=== PATIENT | male | born 1970 | race Caucasian/White ===

== ENCOUNTER 2020-02-13 14:19 | Outpatient (CLI) | payer OTHER, SELFPAY ==
[2020-02-13 16:22] LABS: Basophils Percent Auto 0.7 % (0.2-1.2); Eosinophils Absolute Auto 0.2 K/mm3 (0-0.3); Eosinophils Percent Auto 2.5 % (0-4.4); Hematocrit 51.7 % (42.0-52.0); Hemoglobin 17.9 g/dL (14.0-18.0); Immature Granulocyte Absolute 0.04 K/mm3 (0.00-0.031); Immature Granulocyte Percent A 0.7 % (0-0.5); Lymphocytes Absolute Auto 1.32 K/mm3 (0.9-3.2); Lymphocytes Percent Auto 21.6 % (18.3-44.2); Mean Corpuscular HGB Conc 34.6 g/dl (32-36); Mean Corpuscular Volume 89.6 fl (80-100); Mean Platelet Volume 10.6 fl (7.4-10.4); Monocytes Absolute Auto 0.7 K/mm3 (0.1-0.6); Monocytes Percent Auto 11.1 % (2.6-8.5); Neutrophils Absolute Auto 3.9 K/mm3 (1.3-6.7); Neutrophils Percent Auto 63.4 % (45.5-73.1); Platelet Count Result 218 k/mm3 (150-375); Red Blood Count 5.77 M/mm3 (4.6-6.20); Red Cell Distribution Width 12.9 % (11.5-14.5); White Blood Count 6.1 K/mm3 (4.5-10.0)
[2020-02-13 16:41] LABS: Hemoglobin A1C 8.2 % (<5.7)
[2020-02-13 16:42] LABS: Alanine Aminotransferase 40 U/L (4-50); Albumin Level 4.7 g/dL (3.5-5.1); Alkaline Phosphatase 108 U/L (38-126); Aspartate Amino Transferase 35 U/L (17-59); Bilirubin,Total 0.7 mg/dL (0.2-1.3); Blood Urea Nitrogen 12 mg/dL (9-20); Calcium 9.8 mg/dL (8.4-10.2); Carbon Dioxide 23 mmol/L (22-30); Chloride 100 mmol/L (98-107); Cholesterol 170 mg/dL (0-200); Estimated Glomerular Filt Rate > 60; Glucose 268 mg/dL (75-110); HDL Direct 41 mg/dL; Potassium 4.2 mmol/L (3.4-5.0); Sodium 136 mmol/L (137-145); Triglycerides 328 mg/dL (<150)
[2020-02-13 16:53] LABS: LDL Cholesterol Direct 98 mg/dL
[2020-02-13 17:37] LABS: Creatinine Urine 25.5 mg/dL
[2020-02-13 18:27] LABS: MALB Creatinine Ratio < 23.5 mg/g (0-30); Microalbumin Urine Random < 6.0 mg/L (0-16.7)
== END 2020-02-13 14:20 | disposition home or self-care (01) ==
PROVIDERS: PCP Family Medicine; Visit Provider Family Medicine
DX: I10 Essential (primary) hypertension (principal); E11.65 Type 2 diabetes mellitus with hyperglycemia; E78.2 Mixed hyperlipidemia; E11.9 Type 2 diabetes mellitus without complications
CPT/HCPCS: 36415; 80053; 80061; 82043; 83036; 85025

== ENCOUNTER 2020-11-26 15:52 | Outpatient (CLI) | payer OTHER, SELFPAY ==
[2020-11-26 16:09] LABS: Hematocrit 49.7 % (42.0-52.0); Hemoglobin 17.1 g/dL (14.0-18.0); Mean Corpuscular HGB Conc 34.4 g/dl (32-36); Mean Corpuscular Hemoglobin 31.2 pg (26-34); Mean Corpuscular Volume 90.7 fl (80-100); Mean Platelet Volume 10.1 fl (7.4-10.4); Platelet Count Result 201 k/mm3 (150-375); Red Blood Count 5.48 M/mm3 (4.6-6.20); Red Cell Distribution Width 12.8 % (11.5-14.5); White Blood Count 7.7 K/mm3 (4.5-10.0)
[2020-11-26 16:22] LABS: Alanine Aminotransferase 60 U/L (4-50); Albumin Level 4.4 g/dL (3.5-5.1); Alkaline Phosphatase 84 U/L (38-126); Anion Gap 8 mmol/L (8-16); Aspartate Amino Transferase 45 U/L (17-59); Bilirubin,Total 0.5 mg/dL (0.2-1.3); Blood Urea Nitrogen 14 mg/dL (9-20); Calcium 9.4 mg/dL (8.4-10.2); Carbon Dioxide 27 mmol/L (22-30); Chloride 101 mmol/L (98-107); Estimated Glomerular Filt Rate > 60; Glucose 263 mg/dL (75-110); Potassium 4.2 mmol/L (3.4-5.0); Sodium 136 mmol/L (137-145)
== END 2020-11-26 15:53 | disposition home or self-care (01) ==
LOC: ANHLAB 15:53
PROVIDERS: PCP Family Medicine; Visit Provider Physician Assistant
DX: E11.65 Type 2 diabetes mellitus with hyperglycemia (principal); I10 Essential (primary) hypertension
CPT/HCPCS: 36415; 80053; 83036; 85027

== ENCOUNTER 2021-04-08 06:39 | Outpatient (CLI) | payer OTHER, SELFPAY ==
[2021-04-08 07:35] LABS: Alanine Aminotransferase 46 U/L (4-50); Albumin Level 4.5 g/dL (3.5-5.1); Alkaline Phosphatase 80 U/L (38-126); Anion Gap 10 mmol/L (8-16); Aspartate Amino Transferase 38 U/L (17-59); Bilirubin,Total 0.8 mg/dL (0.2-1.3); Blood Urea Nitrogen 13 mg/dL (9-20); Calcium 9.2 mg/dL (8.4-10.2); Carbon Dioxide 23 mmol/L (22-30); Chloride 104 mmol/L (98-107); Cholesterol 166 mg/dL (0-200); Estimated Glomerular Filt Rate > 60; Glucose 149 mg/dL (75-110); HDL Direct 37 mg/dL; Potassium 4.2 mmol/L (3.4-5.0); Sodium 137 mmol/L (137-145); Triglycerides 162 mg/dL (<150)
[2021-04-08 07:46] LABS: LDL Cholesterol Direct 91 mg/dL
[2021-04-08 09:26] LABS: Hemoglobin A1C 7.9 % (<5.7)
== END 2021-04-08 06:40 | disposition home or self-care (01) ==
LOC: ANHLAB 06:41
PROVIDERS: PCP Family Medicine; Visit Provider Physician Assistant
DX: I10 Essential (primary) hypertension (principal); E11.69 Type 2 diabetes mellitus with other specified complication; E78.5 Hyperlipidemia, unspecified; E11.65 Type 2 diabetes mellitus with hyperglycemia
CPT/HCPCS: 36415; 80053; 80061; 83036

== ENCOUNTER 2021-11-08 09:46 | Outpatient (CLI) | payer OTHER, SELFPAY ==
[2021-11-08 10:16] LABS: Basophils Percent Auto 0.5 % (0.2-1.2); Eosinophils Absolute Auto 0.2 K/mm3 (0-0.3); Eosinophils Percent Auto 3.3 % (0-4.4); Hematocrit 48.2 % (42.0-52.0); Hemoglobin 16.6 g/dL (14.0-18.0); Immature Granulocyte Absolute 0.03 K/mm3 (0.00-0.031); Immature Granulocyte Percent A 0.5 % (0-0.5); Lymphocytes Percent Auto 22.3 % (18.3-44.2); Mean Corpuscular HGB Conc 34.4 g/dl (32-36); Mean Corpuscular Hemoglobin 31.4 pg (26-34); Mean Corpuscular Volume 91.3 fl (80-100); Mean Platelet Volume 10.2 fl (7.4-10.4); Monocytes Absolute Auto 0.7 K/mm3 (0.1-0.6); Monocytes Percent Auto 10.8 % (2.6-8.5); Neutrophils Absolute Auto 3.9 K/mm3 (1.3-6.7); Neutrophils Percent Auto 62.6 % (45.5-73.1); Platelet Count Result 181 k/mm3 (150-375); Red Blood Count 5.28 M/mm3 (4.6-6.20); Red Cell Distribution Width 13.3 % (11.5-14.5); White Blood Count 6.3 K/mm3 (4.5-10.0)
[2021-11-08 10:25] LABS: Hemoglobin A1C 7.8 % (<5.7)
[2021-11-08 10:28] LABS: Alanine Aminotransferase 42 U/L (4-50); Albumin Level 4.4 g/dL (3.5-5.1); Alkaline Phosphatase 108 U/L (38-126); Anion Gap 7 mmol/L (8-16); Aspartate Amino Transferase 31 U/L (17-59); Bilirubin,Total 0.7 mg/dL (0.2-1.3); Blood Urea Nitrogen 14 mg/dL (9-20); Calcium 9.4 mg/dL (8.4-10.2); Carbon Dioxide 22 mmol/L (22-30); Chloride 104 mmol/L (98-107); Cholesterol 178 mg/dL (0-200); Estimated Glomerular Filt Rate > 60; Glucose 132 mg/dL (65-110); HDL Direct 42 mg/dL; Potassium 4.3 mmol/L (3.4-5.0); Sodium 133 mmol/L (137-145); Triglycerides 279 mg/dL (<150)
[2021-11-08 10:38] LABS: LDL Cholesterol Direct 90 mg/dL
[2021-11-08 11:18] LABS: Creatinine Urine 71.3 mg/dL
[2021-11-08 11:22] LABS: MALB Creatinine Ratio 23.1 mg/g (0-30); Microalbumin Urine Random 16.5 mg/L (0-16.7)
== END 2021-11-08 09:47 | disposition home or self-care (01) ==
LOC: ANHLAB 09:48
PROVIDERS: PCP Family Medicine; Visit Provider Family Medicine
DX: I10 Essential (primary) hypertension (principal); E11.9 Type 2 diabetes mellitus without complications; E78.2 Mixed hyperlipidemia
CPT/HCPCS: 36415; 80053; 80061; 82043; 83036; 85025

== ENCOUNTER 2022-05-31 06:54 | Outpatient (CLI) | payer OTHER, SELFPAY ==
[2022-05-31 07:27] LABS: Basophils Absolute Auto 0.1 K/mm3 (0.0-0.1); Basophils Percent Auto 0.8 % (0.2-1.2); Eosinophils Absolute Auto 0.2 K/mm3 (0-0.3); Eosinophils Percent Auto 3.3 % (0-4.4); Hematocrit 49.7 % (42.0-52.0); Hemoglobin 17.2 g/dL (14.0-18.0); Immature Granulocyte Absolute 0.03 K/mm3 (0.00-0.031); Immature Granulocyte Percent A 0.5 % (0-0.5); Lymphocytes Absolute Auto 1.19 K/mm3 (0.9-3.2); Lymphocytes Percent Auto 19.5 % (18.3-44.2); Mean Corpuscular HGB Conc 34.6 g/dl (32-36); Mean Corpuscular Volume 89.7 fl (80-100); Monocytes Absolute Auto 0.7 K/mm3 (0.1-0.6); Monocytes Percent Auto 12.1 % (2.6-8.5); Neutrophils Absolute Auto 3.9 K/mm3 (1.3-6.7); Neutrophils Percent Auto 63.8 % (45.5-73.1); Platelet Count Result 190 k/mm3 (150-375); Red Blood Count 5.54 M/mm3 (4.6-6.20); Red Cell Distribution Width 13.3 % (11.5-14.5); White Blood Count 6.1 K/mm3 (4.5-10.0)
[2022-05-31 10:26] LABS: Hemoglobin A1C 7.6 % (<5.7)
[2022-05-31 11:38] LABS: Alanine Aminotransferase 46 U/L (6-50); Albumin Level 4.6 g/dL (3.5-5.1); Alkaline Phosphatase 91 U/L (38-126); Anion Gap 13 mmol/L (8-16); Aspartate Amino Transferase 32 U/L (17-59); Bilirubin,Total 0.7 mg/dL (0.2-1.3); Blood Urea Nitrogen 15 mg/dL (9-20); Calcium 9.3 mg/dL (8.4-10.2); Carbon Dioxide 21 mmol/L (22-30); Chloride 99 mmol/L (98-107); Cholesterol 161 mg/dL (0-200); Estimated Glomerular Filt Rate > 60; Glucose 162 mg/dL (65-110); HDL Direct 45 mg/dL; Potassium 4.2 mmol/L (3.4-5.0); Sodium 133 mmol/L (137-145); Triglycerides 208 mg/dL (<150)
[2022-05-31 11:49] LABS: LDL Cholesterol Direct 78 mg/dL
[2022-05-31 12:30] LABS: Prostate Specific Antigen 0.2 ng/mL (< OR = 4.0)
== END 2022-05-31 06:55 | disposition home or self-care (01) ==
PROVIDERS: PCP Family Medicine; Visit Provider Nurse Practitioner Gerontology
DX: Z12.5 Encounter for screening for malignant neoplasm of prostate (principal); I10 Essential (primary) hypertension; E78.5 Hyperlipidemia, unspecified; E11.69 Type 2 diabetes mellitus with other specified complication; E11.65 Type 2 diabetes mellitus with hyperglycemia
CPT/HCPCS: 36415; 80053; 80061; 83036; 84153; 84443; 85025; G0103

== ENCOUNTER 2022-07-25 08:00 | Emergency (ER) | payer OTHER, SELFPAY ==
--- NOTE | 2022-07-25 08:25 | ED.URI ---
HPI - URI/Sore Throat General Chief Complaint: Upper Respiratory Infection Stated Complaint: fever,sob Time Seen by Provider: 07/25/22 08:34 Source: patient and RN notes reviewed Mode of arrival: ambulatory Limitations: no limitations History of Present Illness HPI Narrative: 51-year-old male presents with concern for feeling of shortness of breath that occurs mainly at nighttime he reports some mild rhinorrhea, feeling of something catching in his throat. He reports body aches and low-grade temperature. He reports most of the symptoms occur in the evening and overnight, he has sweats and chills overnight. He reports in the morning he feels fine, this has been going on for 3 to 4 days. He reports he had COVID 1 month ago and took Paxlovid. His COVID symptoms completely resolved after 1 week. He reports he is taken ibuprofen for his current symptoms, denies any other agbk-hxq-iwbofpi medications. He denies any history of problems with breathing, smoking, asthma. He denies chest pain. He denies difficulty swallowing MD elicited complaint: cough and sore throat Related Data Allergies Allergy/AdvReac Type Severity Reaction Status Date / Time amoxicillin Allergy Severe Hives Verified 06/01/22 07:18 Review of Systems Review of Systems: CONSTITUTIONAL: Denies malaise, chills, sweats, low-grade fever. EYES: Denies visual changes, redness, or discharge. ENT: Reports rhinorrhea, congestion. Sinus pain, otalgia and sore throat. CARDIOVASCULAR: Denies chest pain, palpitations, or edema. RESPIRATORY: Reports cough, dyspnea. GASTROINTESTINAL: Denies abdominal pain, nausea, vomiting, diarrhea SKIN: Denies rash or itching. MUSCULOSKELETAL: Reports myalgia. NEUROLOGIC: Denies headache. All systems reviewed & are unremarkable except as noted in HPI and below PMFSH Past Medical History Medical History Benign essential HTN Hyperlipidemia associated with type 2 diabetes mellitus Type 2 diabetes mellitus with hyperglycemia Social History Social History Social History: Smoking status: Never smoker Second hand tobacco smoke exposure: No Alcohol intake: current Drinks per week: 2 Substance use: never Substance use type: does not use Gender identity (if verbalized by the patient): Male Sexual Orientation (if Verbalized by the Patient): Straight or Heterosexual Comments At time of signature, agree with nursing past medical, surgical, social and family history. There is no relevant family history pertinent to the presenting complaint Exam Narrative: GENERAL: Well-appearing, well-nourished, and in no acute distress. HEAD: Normocephalic EYES: PERRLA, conjunctivae clear ENT: Nares clear, clear discharge. Mucous membranes moist. TM pearly dontao with dull light reflex bilaterally; no tragal tenderness. Oropharynx not erythematous without lesions. Tonsils not enlarged and without exudate, no drooling, no hoarseness, no trismus, uvula midline. NECK: Supple. No lymphadenopathy CHEST: Clear to auscultation, breath sounds equal. No wheezing, rhonchi, rales, or stridor. No respiratory distress, speaks in full sentences. HEART: Regular rate and rhythm. No murmur heard. SKIN: Warm, dry, no rash. NEURO: Alert and oriented x3. PSYCH: Normal mood and affect Course Course Emergency Course: Patient is aware of diagnosis, understands and agrees to treatment plan. Anticipatory guidance given. Patient agrees to follow-up as directed and is aware of reasons to seek care at the emergency department. Portions of this record may have been created with voice recognition software Level of Care: Express Care Visit Vital Signs Vital signs: Vital Signs Temperature 97.8 F 07/25/22 08:32 Pulse Rate 101 H 07/25/22 08:32 Respiratory Rate 20 07/25/22 08:32 Blood Pressure 118/76 07/25/22 08:32 Pulse Oximetry 97 07/25/22 0
[2022-07-25 08:32] VITALS: BP 118/76; PULSE 101; RESP 20; TEMP 36.6; O2SAT 97
== END 2022-07-25 09:09 | disposition home or self-care (01) ==
PROVIDERS: Emergency Provider Nurse Practitioner; PCP Family Medicine
DX: R06.02 Shortness of breath (principal); I10 Essential (primary) hypertension; E78.5 Hyperlipidemia, unspecified; E11.9 Type 2 diabetes mellitus without complications
CPT/HCPCS: 87804; 99213; G0463

== ENCOUNTER 2022-07-27 07:47 | Emergency (ER) | payer OTHER, SELFPAY ==
--- NOTE | ~2022-07-27 | XR_ITS ---
EXAMINATION: XR chest 1V portable DATE: 07/27/2022 08:08 INDICATION: Fever. Shortness of breath. TECHNIQUE: A single frontal view of the chest was obtained. COMPARISON: None. FINDINGS: There is a left hilar mass. There are airspace opacities in the right mid and lower lung zo samy and left lower lung zone. No pleural effusion or pneumothorax. The heart size is normal. IMPRESSION: 1. Left hilar mass, which may be pneumonia or malignancy. Chest CT with contrast is recommended. 2. Airspace opacities in right mid and lower lung zones and left lower lung zone, consistent with ate lectasis versus pneumonia. Reviewed, dictated and finalized at location B. IMPRESSION: 1. Left hilar mass, which may be pneumonia or malignancy. Chest CT with contras t is recommended. 2. Airspace opacities in right mid and lower lung zones and left lower lung zon e, consistent with atelectasis versus pneumonia.
--- NOTE | ~2022-07-27 | CT_ITS ---
EXAMINATION: CTA chest PE protocol DATE: 07/27/2022 12:25 INDICATION: Shortness of breath. TECHNIQUE: Computed tomography angiography (CTA) of the chest was performed with 100 mL Omnipaque-350 intravenous contrast timed to evaluate the pulmonary arteries. Coronal maximum intensity projection 3D-reconstructions were created by the technologist. Automated exposure control and iterative reconst ruction technique were employed. The dose-length product was 773.36 mGy-cm. COMPARISON: Chest CT 07/27/2022 FINDINGS: There are airspace and groundglass opacities with air bronchograms involving left upper lob e, worst in the anterior segment, consistent with pneumonia. There are centrilobular nodules in right upper lobe, consistent with pneumonia. There is mild atelectasis in the lower lobes. There is a trac e left pleural effusion. The heart size is normal. There are coronary artery calcifications. No peric ardial effusion. There is no pulmonary embolus. There is diffuse hepatic steatosis. There is mild tho racic spondylosis. IMPRESSION: 1. Bilateral pneumonia, predominantly in left upper lobe. 2. No pulmonary embolus. Reviewed, dictated and finalized at location B.
--- NOTE | ~2022-07-27 | CT_ITS ---
EXAMINATION:CT diagnostic chest wo con DATE: 07/27/2022 09:19 INDICATION: Left lung mass. Abnormal chest radiograph. TECHNIQUE: Computed tomography (CT) of the chest was performed without intravenous contrast. Automate d exposure control and iterative reconstruction technique were employed. The dose-length product (DLP ) was 511.61 mGy-cm. COMPARISON: Chest single view 07/27/2022 FINDINGS: There are airspace and groundglass opacities with air bronchograms involving left upper lob e, worst in the anterior segment, consistent with pneumonia. There are centrilobular nodules in right upper lobe, consistent with pneumonia. There is mild atelectasis in the lower lobes. There is a trac e left pleural effusion. The heart size is normal. There are coronary artery calcifications. No peric ardial effusion. There is diffuse hepatic steatosis. There is mild thoracic spondylosis. IMPRESSION: 1. Bilateral pneumonia, predominantly in left upper lobe. Reviewed, dictated and finalized at location B.
[2022-07-27 07:49] VITALS: BP 158/86; PULSE 112; RESP 29; TEMP 39.6; O2SAT 99
--- NOTE | 2022-07-27 07:55 | ECG_ITS ---
Measurements Intervals [place] Rate: 108 P: 9 UT: 124 QRS: -44 QRSD: 107 T: 42 QT: 315 QTc: 424 Interpretive Statements SINUS TACHYCARDIA MARKED LEFT AXIS DEVIATION [QRS AXIS < -30] ABNORMAL ECG NO PREVIOUS ECG AVAILABLE FOR COMPARISON Electronically Signed On 07-27-2022 10:21:40 CDT by Jayme Bonds M.D.
[2022-07-27 08:07] VITALS: O2SAT 95
[2022-07-27 08:18] LABS: Basophils Percent Auto 0.3 % (0.2-1.2); Eosinophils Percent Auto 0.1 % (0-4.4); Hematocrit 45.1 % (42.0-52.0); Hemoglobin 15.5 g/dL (14.0-18.0); Immature Granulocyte Absolute 0.15 K/mm3 (0.00-0.031); Immature Granulocyte Percent A 1.3 % (0-0.5); Lymphocytes Absolute Auto 0.79 K/mm3 (0.9-3.2); Lymphocytes Percent Auto 6.7 % (18.3-44.2); Mean Corpuscular HGB Conc 34.4 g/dl (32-36); Mean Corpuscular Hemoglobin 30.8 pg (26-34); Mean Corpuscular Volume 89.5 fl (80-100); Mean Platelet Volume 9.4 fl (7.4-10.4); Monocytes Absolute Auto 1.8 K/mm3 (0.1-0.6); Monocytes Percent Auto 15.2 % (2.6-8.5); Neutrophils Absolute Auto 9.1 K/mm3 (1.3-6.7); Neutrophils Percent Auto 76.4 % (45.5-73.1); Platelet Count Result 208 k/mm3 (150-375); Red Blood Count 5.04 M/mm3 (4.6-6.20); Red Cell Distribution Width 13.5 % (11.5-14.5); White Blood Count 11.9 K/mm3 (4.5-10.0)
[2022-07-27 08:25] LABS: INR 1.1; Partial Thromboplastin Time 25.2 SECONDS (22.3-36.8)
[2022-07-27 08:28] LABS: D Dimer 0.82 ug/mL (<0.48); Lactic Acid Reflex 1.4 mmol/L (0.7-2.0)
[2022-07-27 08:30] LABS: Alanine Aminotransferase 44 U/L (6-50); Albumin Level 4.3 g/dL (3.5-5.1); Alkaline Phosphatase 88 U/L (38-126); Anion Gap 14 mmol/L (8-16); Aspartate Amino Transferase 42 U/L (17-59); Bilirubin,Total 0.7 mg/dL (0.2-1.3); Blood Urea Nitrogen 20 mg/dL (9-20); Calcium 8.8 mg/dL (8.4-10.2); Carbon Dioxide 22 mmol/L (22-30); Chloride 94 mmol/L (98-107); Estimated CRCL calculation 102 ml/min; Estimated Glomerular Filt Rate > 60; Glucose 137 mg/dL (65-110); Potassium 3.8 mmol/L (3.4-5.0); Sodium 130 mmol/L (137-145)
[2022-07-27] MEDS: IBUPROFEN 400 MG TABLET 800 MG PO (08:52)
[2022-07-27] MEDS: ACETAMINOPHEN 500 MG TABLET 1000 MG PO (08:54)
[2022-07-27 08:55] VITALS: BP 139/90; PULSE 113; RESP 25; O2SAT 98
--- NOTE | 2022-07-27 09:08 | PC.NURSE ---
Pt to CT scan via stretcher at this time.
[2022-07-27 09:09] LABS: Influenza A QL RT-PCR Negative (Negative); Influenza B QL RT-PCR Negative (Negative); SARS-CoV-2 RNA PCR Negative
[2022-07-27 09:44] VITALS: PULSE 100; RESP 27; TEMP 37.9; O2SAT 97
--- NOTE | 2022-07-27 10:13 | ED.URI ---
HPI - URI/Sore Throat General Chief Complaint: Upper Respiratory Infection Stated Complaint: uri symptoms, sob, cough Time Seen by Provider: 07/27/22 09:06 Source: patient Mode of arrival: ambulatory Limitations: no limitations History of Present Illness HPI Narrative: This is a 51 year old male that presents to the ER for cold symptoms present over the last 4 days. Reports fevers, dry cough, and shortness of breath. He was evaluated at urgent care and started on an albuterol inhaler and steroid with little relief. Denies chest pain. Related Data Allergies Allergy/AdvReac Type Severity Reaction Status Date / Time amoxicillin Allergy Severe Hives Verified 07/27/22 07:57 Review of Systems Review of Systems: CONSTITUTIONAL: Reports fever ENT: Reports sore throat CARDIOVASCULAR: Denies chest pain, or edema. RESPIRATORY: Reports cough and dyspnea. All systems reviewed & are unremarkable except as noted in HPI and below PMFSH Past Medical History Medical History Benign essential HTN Hyperlipidemia associated with type 2 diabetes mellitus Type 2 diabetes mellitus with hyperglycemia Social History Social History Social History: Smoking status: Never smoker Second hand tobacco smoke exposure: No Alcohol intake: current Drinks per week: 2 Substance use: never Substance use type: does not use Gender identity (if verbalized by the patient): Male Sexual Orientation (if Verbalized by the Patient): Straight or Heterosexual Exam Narrative: GENERAL: Well-appearing, well-nourished, and in no acute distress. HEAD: Normocephalic, atraumatic. EYES: EOMI. ENT: Nares clear, no rhinorrhea or epistaxis. Mucous membranes moist. Oropharynx without tonsillar hypertrophy exudate or other lesions. NECK: Supple. No adenopathy or masses. CHEST: Clear to auscultation. No respiratory distress. Rales in the left upper lobe. No wheezes or rhonchi HEART: Regular rate and rhythm. No murmur heard. Normal peripheral pulses. EXTREMITIES: Normal range of motion. No edema. SKIN: Warm, dry, no rash. NEURO: No focal deficits. Alert and oriented x3. PSYCH: Normal mood and affect Course Consultations Consultation #1: Spoke with hospitalist about patient and work-up who declines admission at this time Date: 07/27/22 Consultation #2: Spoke with patient's primary about work-up. Patient is to have close follow-up in clinic Date: 07/27/22 Vital Signs Vital signs: Vital Signs Temperature 103.3 F H 07/27/22 07:49 Pulse Rate 112 H 07/27/22 07:49 Respiratory Rate 29 H 07/27/22 07:49 Blood Pressure 158/86 H 07/27/22 07:49 Pulse Oximetry 99 07/27/22 07:49 Oxygen Delivery Room Air 07/27/22 07:49 Temperature 99.0 F 07/27/22 10:41 Pulse Rate 99 07/27/22 10:41 Respiratory Rate 28 H 07/27/22 10:41 Blood Pressure 127/60 07/27/22 10:41 Pulse Oximetry 94 07/27/22 10:41 Oxygen Delivery Room Air 07/27/22 08:07 MDM - URI/Sore Throat MDM Narrative Medical decision making narrative: Patient presents to the emergency department for for fever, cough, shortness of breath. Noted over the last couple of days. Febrile and tachycardic upon arrival, this improved with antipyretics. CBC with leukocytosis to 11.9. Metabolic panel with evidence of mild dehydration. D-dimer was elevated. Influenza and COVID screens are negative. EKG without acute ST changes. Patient denies any chest pain. His lactic acid is not elevated. Chest x-ray shows a possible mass as well as pneumonia. CT scan of the chest was obtained that shows bilateral pneumonia predominantly in the left upper lobe. CTA was obtained due to elevated dimer. This is without evidence of PE. Once again shows bilateral pneumonia predominantly in the left upper lobe. Patient and family updated on case findings. My plan was to admit patient catarino
[2022-07-27 10:41] VITALS: BP 127/60; PULSE 99; RESP 28; TEMP 37.2; O2SAT 94
[2022-07-27 13:25] VITALS: BP 120/72; PULSE 91; RESP 26; TEMP 36.7; O2SAT 97
== END 2022-07-27 13:26 | disposition home or self-care (01) ==
PROVIDERS: Emergency Provider Emergency Medicine; PCP Family Medicine
DX: J18.9 Pneumonia, unspecified organism (principal); Z20.822 Contact with and (suspected) exposure to COVID-19; I10 Essential (primary) hypertension; E11.69 Type 2 diabetes mellitus with other specified complication; E78.5 Hyperlipidemia, unspecified; Z79.84 Long term (current) use of oral hypoglycemic drugs; Z79.4 Long term (current) use of insulin; R00.0 Tachycardia, unspecified
CPT/HCPCS: 36415; 71045; 71250; 71275; 80053; 83605; 85025; 85380; 85610; 85730; 87040; 87502; 93005; 96365; 96367; 99284; A9270; C9803; J0456; J0696; Q9967; U0003; U0005

== ENCOUNTER 2022-08-02 15:08 | Outpatient (CLI) | payer OTHER, SELFPAY ==
--- NOTE | ~2022-08-02 | XR_ITS ---
XR chest 2V 08/02/2022 15:26 Indication: Follow-up pneumonia Procedure: 2 view chest Comparison: 07/27/2022 Findings: There is improving left perihilar pneumonia. Heart size normal. No pleural effusion, edema or pneumothorax. Impression: 1: Improving left perihilar pneumonia. Reviewed, dictated and finalized at location B. Impression: 1: Improving left perihilar pneumonia.
== END 2022-08-02 15:09 | disposition home or self-care (01) ==
LOC: ANHIMG 15:10
PROVIDERS: PCP Family Medicine; Visit Provider Nurse Practitioner Gerontology
DX: J18.9 Pneumonia, unspecified organism (principal)
CPT/HCPCS: 71046

== ENCOUNTER 2022-12-04 09:55 | Inpatient (IN) | payer OTHER, SELFPAY ==
[2022-12-04] VITALS (35 sets, daily range): BP systolic 136–182; BP diastolic 78–143; PULSE 97–113; RESP 13–105; TEMP 36.6–37.4; O2SAT 92–99; BMI 32.8
--- NOTE | ~2022-12-04 | XR_ITS ---
XR abdomen/kub 1V 12/05/2022 09:11 INDICATION: Small bowel obstruction TECHNIQUE: KUB COMPARISON: 12/04/2022 FINDINGS: NG tube in the stomach. There is decreased gaseous distention of the small bowel with incre asing volume of gas in the colon, likely resolving ileus or small bowel obstruction. Right airspace d isease may represent atelectasis or pneumonia. Possible right pleural effusion. IMPRESSION: 1: Decreasing small bowel gas and distention, likely resolving ileus or obstruction. 2: Right airspace disease, atelectasis versus developing pneumonia.. Reviewed, dictated and finalized at location B. AULIC RIVETER IMPRESSION: 1: Decreasing small bowel gas and distention, likely resolving ileus or obstruc tion. 2: Right airspace disease, atelectasis versus developing pneumonia..
--- NOTE | ~2022-12-04 | XR_ITS ---
EXAM: XR abdomen NG/feed tube rechec DATE: 12/04/2022 18:00 HISTORY: NG advanced 3 cm . COMPARISON: Same date at 4:35 PM FINDINGS/IMPRESSION: NG tube now in good position. No other interval change. Reviewed, dictated and finalized at location K. OONER
--- NOTE | ~2022-12-04 | XR_ITS ---
Supine views of the abdomen Clinical history: Small bowel obstruction COMPARISON: 12/05/2022 Findings: NG tube in satisfactory position. Bowel gas pattern is nonspecific. No evidence for obstruc tion or free air. No abnormal mass lesion or calcification is seen. Osseous structures are intact. Impression: NG tube in place. Nonspecific bowel gas pattern. Reviewed, dictated and finalized at [facility]. US AMBASSADOR Impression: NG tube in place. Nonspecific bowel gas pattern.
--- NOTE | ~2022-12-04 | XR_ITS ---
EXAM: XR abdomen NG/feed tube insert DATE: 12/04/2022 17:07 HISTORY: NG placement . COMPARISON: CT abdomen and pelvis, same date. FINDINGS: NG tube, tip projecting over the stomach, side port at the GE junction Streaky bibasilar o pacities in the lung bases. Multiple loops of dilated small bowel in the upper abdomen. No organomega ly. No abnormal abdominal calcification. Regional bones and soft tissues normal for age. IMPRESSION: NG tube side port is at the GE junction, consider advancing. Small bowel obstruction vers us adynamic ileus. Reviewed, dictated and finalized at location K. LE ASCP CONSULTANT IMPRESSION: NG tube side port is at the GE junction, consider advancing. Small bowel obstruction versus adynamic ileus.
--- NOTE | ~2022-12-04 | XR_ITS ---
Supine views of the abdomen Clinical history: Small bowel obstruction Findings: Bowel gas pattern is nonspecific. Oral contrast present within large bowel. No evidence for obstruction or free air. No abnormal mass lesion or calcification is seen. Osseous structures are in tact. Impression: Nonspecific bowel gas pattern. Reviewed, dictated and finalized at [facility]. ERY CHIEF Impression: Nonspecific bowel gas pattern.
--- NOTE | ~2022-12-04 | XR_ITS ---
EXAM: XR abdomen/kub 1V DATE: 12/04/2022 17:14 HISTORY: Ngt in place, DISTENTION, PAIN . COMPARISON: Same date at 4:35 PM. FINDINGS: Persistent bibasilar atelectasis. NG tube remains in stable position, side port at the GE junction. Diffuse small bowel dilation. IMPRESSION: Shallow positioned NG tube, consider advancing. Small bowel obstruction versus adynamic i leus. Reviewed, dictated and finalized at location K. MILL OPERATOR IMPRESSION: Shallow positioned NG tube, consider advancing. Small bowel obstruc tion versus adynamic ileus.
--- NOTE | ~2022-12-04 | CT_ITS ---
EXAMINATION: CT abdomen pelvis w con DATE: 12/04/2022 13:59 INDICATION: Lower abdominal pain. Hernia. History kidney stones. TECHNIQUE: Computed tomography (CT) of the abdomen and pelvis was performed with 100 CC Omnipaque 350 intravenous contrast. Automated exposure control and iterative reconstruction technique were employe d. Exam dose: 1510.93 mGy-cm total exam DLP. COMPARISON: None. FINDINGS: Minimal dependent bilateral lower lobe atelectasis. Normal heart size. Coronary artery calc ifications. No pericardial or pleural effusion. Diffuse hepatic steatosis. No hepatic space-occupying mass lesion. The gallbladder is present. No per icholecystic fluid or fat stranding. No bile duct or pancreatic duct dilatation. No pancreatic mass l esion or calcification. Normal splenic size. Normal morphology of the adrenal glands. No renal mass lesion or urinary tract calculus or hydroureteronephrosis. The urinary bladder is unrem arkable. There is prostate enlargement and calcifications. Bilateral fat-containing inguinal hernias. There is atherosclerotic calcification of the abdominal aorta but no aneurysm. No intraperitoneal or retroperitoneal or pelvic mass lesion or adenopathy or ascites. Prominent fluid retention in the stomach with air-fluid level. There are dilated fluid containing proximal and mid small bowel segments with air-fluid levels, witho ut obvious transition point. There are air fluid levels in the ascending colon. Diverticulosis of the very redundant sigmoid colon; no CT evidence of diverticulitis. No intraperitoneal free air. Up to 4.8 cm wide fat-containing umbilical or periumbilical hernia. Included skeletal structures are unremarkable. IMPRESSION: Dilated proximal and mid small bowel with air fluid levels, without obvious transition p oint, and air fluid levels of ascending colon; consider enterocolitis, adynamic ileus. Partial small bowel obstruction is not excluded. Diverticulosis of the sigmoid colon; no evidence of diverticulitis No free air Hepatic steatosis Reviewed, dictated and finalized at [facility]. Reviewed, dictated and finalized at location A. ENGER BOOKING CLERK IMPRESSION: Dilated proximal and mid small bowel with air fluid levels, withou t obvious transition point, and air fluid levels of ascending colon; consider e nterocolitis, adynamic ileus. Partial small bowel obstruction is not excluded. Diverticulosis of the sigmoid colon; no evidence of diverticulitis No free air Hepatic steatosis
--- NOTE | ~2022-12-04 | XR_ITS ---
EXAMINATION: XR sm bowel follow through DATE: 12/06/2022 12:31 INDICATION: Small bowel obstruction. TECHNIQUE: Oral contrast was administered, and a time course of radiographs of the abdomen was obtain ed. Fluoroscopy of the small bowel was noted performed. Fluoroscopy exposure time was 0 minutes. The total number of images was 8. COMPARISON: CT abdomen and pelvis 12/04/2022 FINDINGS: There are mildly dilated loops of jejunum. The ileum is normal in caliber. The terminal ileum is norm al. Transit time from the stomach to proximal colon was approximately 1 hour. IMPRESSION: 1. Mildly dilated jejunum, consistent with adynamic ileus. Reviewed, dictated and finalized at location A. HAND MAINTENANCE
[2022-12-04 10:38] LABS: Basophils Percent Auto 0.2 % (0.2-1.2); Eosinophils Percent Auto 0.3 % (0-4.4); Hematocrit 51.1 % (42.0-52.0); Hemoglobin 18.1 g/dL (14.0-18.0); Immature Granulocyte Absolute 0.07 K/mm3 (0.00-0.031); Immature Granulocyte Percent A 0.6 % (0-0.5); Lymphocytes Absolute Auto 0.31 K/mm3 (0.9-3.2); Lymphocytes Percent Auto 2.7 % (18.3-44.2); Mean Corpuscular HGB Conc 35.4 g/dl (32-36); Mean Corpuscular Hemoglobin 31.5 pg (26-34); Mean Platelet Volume 9.6 fl (7.4-10.4); Monocytes Absolute Auto 0.6 K/mm3 (0.1-0.6); Monocytes Percent Auto 5.5 % (2.6-8.5); Neutrophils Absolute Auto 10.5 K/mm3 (1.3-6.7); Neutrophils Percent Auto 90.7 % (45.5-73.1); Platelet Count Result 179 k/mm3 (150-375); Red Blood Count 5.74 M/mm3 (4.6-6.20); Red Cell Distribution Width 13.2 % (11.5-14.5); White Blood Count 11.5 K/mm3 (4.5-10.0)
[2022-12-04 11:09] LABS: Alanine Aminotransferase 45 U/L (6-50); Albumin Level 4.8 g/dL (3.5-5.1); Alkaline Phosphatase 84 U/L (38-126); Anion Gap 11 mmol/L (8-16); Aspartate Amino Transferase 35 U/L (17-59); Blood Urea Nitrogen 15 mg/dL (9-20); Calcium 9.6 mg/dL (8.4-10.2); Carbon Dioxide 23 mmol/L (22-30); Chloride 98 mmol/L (98-107); Estimated Glomerular Filt Rate > 60; Glucose 234 mg/dL (65-110); Lipase 26 U/L (23-300); Potassium 4.1 mmol/L (3.4-5.0); Sodium 132 mmol/L (137-145)
[2022-12-04 12:26] LABS: Appearance Urine Clear (Clear); Bilirubin Urine Negative (Negative); Blood Urine Trace-intact (Negative); Color Urine Yellow (Yellow); Glucose Urine UA 3+ mg/dL (Negative); Ketones Urine 4+ mg/dL (Negative); Leukocyte Esterase Ur Negative LEU/UL (Negative); Nitrate Urine Negative (Negative); Protein Urine Negative (Negative); Urobilinogen Urine 0.2 mg/dL (<2.0); pH Urine 5.5 (5.0-9.0)
[2022-12-04 12:31] LABS: Bacteria Urine Trace /hpf; RBC Urine 0-2 /hpf (0-2); WBC Urine 0-3 /hpf
[2022-12-04 12:32] LABS: Add Urine Microscopic? YES
--- NOTE | 2022-12-04 13:07 | ED.ABDPAIN ---
HPI - Abdominal Pain General Chief Complaint: Abdominal Pain Stated Complaint: umbilical hernia Time Seen by Provider: 12/04/22 12:54 Source: patient and RN notes reviewed Mode of arrival: ambulatory Limitations: no limitations History of Present Illness HPI narrative: This is a 52 year old male with history of DM 2 who presents for evaluation of lower abdominal pain. He developed mid abdominal pain last night at 9 pm last night and his pain has been constant. He reports abdominal bloating . He also reports his umbilical hernia seemed larger last night but is improved after he had episode of nausea and vomiting. He has small watery bowel movement this morning. He had low grade fever today. He states he has plans to see a surgeon to schedule hernia repair but he has not made appointment just yet. He rates his pain as 7/10. Related Data Home Medications Medication Instructions Recorded Confirmed empagliflozin 25 mg tablet 25 mg PO DAILY 12/04/22 12/04/22 (Jardiance) insulin glargine U-300 conc 300 90 unit subcut HS 12/04/22 12/04/22 unit/mL (3 mL) subcutaneous pen (Toujeo Max U-300 SoloStar) lisinopril 10 mg tablet 10 mg PO DAILY 12/04/22 12/04/22 metformin 1,000 mg tablet 1,000 mg PO BID 12/04/22 12/04/22 Allergies Allergy/AdvReac Type Severity Reaction Status Date / Time amoxicillin Allergy Severe Hives Verified 12/04/22 17:57 Review of Systems Constitutional: Constitutional: Reports fever(s) and Denies weakness Cardiovascular: Cardiovascular: Denies syncope, Denies rapid heart rate, Denies irregular heart rhythm, Denies leg edema and Denies dyspnea Respiratory: Respiratory: Denies chest congestion, Denies hemoptysis, Denies excessive phlegm production and Denies dyspnea Gastrointestinal: Gastrointestinal: Reports abdominal pain, Denies hematochezia, Reports diarrhea, Reports nausea and Reports vomiting Genitourinary: Genitourinary: Denies hematuria, Denies dysuria, Denies penile discharge and Denies testicular pain Musculoskeletal: Musculoskeletal: Denies joint swelling, Denies loss of height and Denies muscle weakness Neurologic: Denies syncope, Denies focal weakness and Denies weakness [facility] Past Medical History Medical History (Updated 12/04/22 @ 21:47 by Ramona Diamond MD) Dyslipidemia Hypertension Kidney stones Type 2 diabetes mellitus Surgical History Surgical History History of tonsillectomy Family History Family History (Updated 12/04/22 @ 17:15 by Jennifer Carrizales PA-C) Other Diabetes mellitus Hypertension Social History Social History (Updated 12/04/22 @ 17:16 by Jennifer Carrizales PA-C) Social History: Surrogate medical decision maker: Kary Durbin, spouse. Code status: Full code. Smoking status: Never smoker Second hand tobacco smoke exposure: No Alcohol intake: current Drinks per week: 4 Substance use: never Substance use type: does not use Lack of Transportation: No Lack of Food: Never True Current Housing: I Have Housing Concerned About Future Housing: No Difficulty Paying Gas/Electric Bills: No Difficulty Paying for Meds: No Currently Unemployed: No Education: Bachelor's Degree Difficulty w/ Childcare or Family Care: No Additional living arrangements comments: Lives with family in [place]. 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 Spiritual care concerns: No Exam Const: General: no acute distress and alert Nutritional Appearance: well nourished Orientation/consciousness: patient oriented x3 HENMT: Head: normal to inspection Eyes: EOM: EOMs intact bilaterally Chest: Chest palpation & inspection: normal inspection of the chest Resp: Effort & Inspection: normal respiratory effort Auscultation: clear to auscultation bilaterally Cardio: Rate: tachycardic Rhythm: regular rhythm Heart sounds: no murmurs GI: Inspection: dist
[2022-12-04 13:09] LABS: Glucose Point of Care 212 mg/dl (65-105)
[2022-12-04] MEDS: ONDANSETRON INJ 4 MG/2 ML VIAL IV PUSH ×3 (13:22→23:32)
[2022-12-04] MEDS: HYDROmorphone HCL INJ (*CRX) 1 MG/ML SYR 0.5 MG IV PUSH (13:25)
[2022-12-04] MEDS: SODIUM CHLORIDE 0.9% IV 1,000 ML 30 ML IV CONT (13:35)
[2022-12-04] MEDS: SODIUM CHLORIDE 0.9% IV 1,000 ML 999 ML IV CONT ×2 (13:36→17:26)
[2022-12-04 13:44] LABS: Lactic Acid Reflex 2.2 mmol/L (0.7-2.0)
--- NOTE | 2022-12-04 15:28 | PM.CNGS ---
Assessment and Plan Assessment and plan (1) Lower abdominal pain of unknown etiology: Code(s): R10.30 - Lower abdominal pain, unspecified Status: Acute Assessment and Plan: Abdominal distension with pain and fluid filled dilated stomach and proximal small bowel. Could be partial small-bowel obstruction but also could well be viral gastroenteritis. With the degree of obstruction and bowel dilatation, he would definitely benefit with NG tube placement and bowel rest. Recommend IV fluids and analgesics as needed. Would probably start Zosyn antibiotics due to leukocytosis and potential for infection as the cause. Thank you for asking me to see this patient in consultation. I will follow along with you. (2) Umbilical hernia without mention of obstruction or gangrene: Code(s): K42.9 - Umbilical hernia without obstruction or gangrene Status: Chronic Assessment and Plan: Large hernia but does not appear to be the cause of present illness. Consider elective repair (3) Type 2 diabetes mellitus with hyperglycemia: Code(s): E11.65 - Type 2 diabetes mellitus with hyperglycemia Status: Chronic Assessment and Plan: Insulin-dependent. Blood sugar about 260 (4) Benign essential HTN: Code(s): I10 - Essential (primary) hypertension Status: Chronic History of Present Illness Consult details Consult date: 12/05/22 Reason for consult: abdominal pain Requesting physician: Ramona Diamond MD Narrative: Patient is a 52-year-old man with a known umbilical hernia that he was planning on getting repaired. Last night he started having mid abdominal pain with distention and bloating. He thought it was a problem with his umbilical hernia as at seemed to be getting larger. He had vomiting and then this morning had watery diarrhea. His pain has been constant and persistent. He came to the emergency room today. He was noted to have a low-grade fever and tachycardia. His abdomen was distended with tenderness mostly in the right lower quadrant. His hernia was not incarcerated[place] [id number] [place] scan of the abdomen and pelvis showed a very dilated fluid-filled stomach and proximal small bowel. This was felt to be most consistent with gastroenteritis although small bowel obstruction was not excluded. There was no transition point noted. There was no small bowel in his umbilical hernia and there was no sign of incarcerated umbilical hernia. He is admitted at this time for his abdominal complaints. He seen in consultation for potential small-bowel obstruction. He is an insulin-dependent diabetic and also has hypertension. Review of Systems Review of Systems: All systems reviewed & are unremarkable except as noted in HPI and below (HPI and those items noted below) Constitutional: Constitutional: Denies chills and Denies fever(s) Cardiovascular: Cardiovascular: Denies chest pain, Denies diaphoresis, Denies dyspnea and Denies paroxysmal nocturnal dyspnea Respiratory: Respiratory: Denies chest congestion, Denies cough and Denies dyspnea Integumentary/Breasts: Skin/Breast: Denies lesions and Denies rash [facility] Past Medical History Medical History Dyslipidemia Hypertension Kidney stones Type 2 diabetes mellitus Surgical History Surgical History History of tonsillectomy Family History Family History Other Diabetes mellitus Hypertension Social History Social History Social History: Surrogate medical decision maker: Kary Ramakrishna, spouse. Code status: Full code. Smoking status: Never smoker Second hand tobacco smoke exposure: No Alcohol intake: current Drinks per week: 4 Substance use: never Substance use type
--- NOTE | 2022-12-04 15:52 | PC.NURSE ---
VO Dr. Diamond NS@ 30mL to IV Bolus
--- NOTE | 2022-12-04 16:10 | PC.NURSE ---
Report received from Liban, reviewed current orders
[2022-12-04 16:31] LABS: Reflex Lactic Acid Yes or No Add Lactic
[2022-12-04] MEDS: SODIUM CHLORIDE 0.9% IV 1,000 ML 125 ML IV CONT ×2 (16:35→18:58)
--- NOTE | 2022-12-04 16:43 | PC.NURSE ---
blood glucose 176 at 1644
[2022-12-04 16:45] LABS: Glucose Point of Care 173 mg/dl (65-105)
--- NOTE | 2022-12-04 16:50 | PM.IMHP ---
H&P: HPI History of Present Illness Date/Time: 12/04/22 16:50 Chief Complaint: Abdominal pain. Narrative: This is a 52-year-old male with history of umbilical hernia, kidney stones, hypertension, hyperlipidemia, and diabetes who presented to the emergency department from home for evaluation of abdominal pain. Last night about 21:00 he developed the sudden onset of periumbilical abdominal pain followed by nausea, vomiting, bloating, and belching. The pain does not radiate and he has not noticed any significant alleviating factors. He slept poorly, changing positions frequently which unfortunately did not seem to help the pain much. He did not take analgesics or njtv-[id number]-cqjccff medications for the pain. This morning he had a small, watery stool without blood or mucus. Due to ongoing pain he came in for evaluation as he was concerned that perhaps the pain was related to an umbilical hernia that he has had for years. He denies fever, chills, sweats, much emesis, melena, and hematochezia. No chest or pleuritic pain. No shortness of breath. He has not had any sick contacts. He was afebrile on arrival to the emergency department. Blood pressures have been running high in the 150s to 180 systolic. Pertinent labs include a WBC of 11.5 hemoglobin 18.1, sodium 132, lactic acid 2.2, and glucose 173. LFTs and lipase were within normal limits. UA had 3+ glucose and 4+ ketones. CT of the abdomen and pelvis showed dilated proximal and mid small bowel with air-fluid levels without obvious transition point and air-fluid levels of the ascending colon which may be related to enterocolitis or adynamic ileus though partial small-bowel obstruction is not excluded. An up to 4.8 cm wide fat containing umbilical and periumbilical hernias noted. NG tube has since been inserted and he is being admitted for further care and surgery consultation. Review of Systems Review of Systems: Twelve systems were reviewed and are negative except for as per HPI [facility] Past Medical History Medical History Dyslipidemia Hypertension Kidney stones Type 2 diabetes mellitus Surgical History Surgical History History of tonsillectomy Family History Family History Other Diabetes mellitus Hypertension Social History Social History Social History: Surrogate medical decision maker: Kary Durbin, spouse. Code status: Full code. Smoking status: Never smoker Second hand tobacco smoke exposure: No Alcohol intake: current Drinks per week: 4 Substance use: never Substance use type: does not use Lack of Transportation: No Lack of Food: Never True Current Housing: I Have Housing Concerned About Future Housing: No Difficulty Paying Gas/Electric Bills: No Difficulty Paying for Meds: No Currently Unemployed: No Education: Bachelor's Degree Difficulty w/ Childcare or Family Care: No Additional living arrangements comments: Lives with family in [place]. Additional occupation/education comments: manager of global. Spiritual care concerns: No Meds Home Medications and Allergies Home Medications Medication Instructions Recorded Confirmed Type blood sugar diagnostic (OneTouch #100 ea 03/09/20 12/04/22 Rx Verio test strips) pen needle, diabetic 32 gauge x #100 ea 12/11/20 12/04/22 Rx 5/32 (BD Ultra-Fine Ave Pen Needle) atorvastatin 40 mg tablet 40 mg PO QHS #90 tabs 11/12/21 12/04/22 Rx amlodipine 10 mg tablet 10 mg PO DAILY #90 tabs 06/01/22 12/04/22 Rx flash glucose sensor (FreeStyle #6 ea 06/01/22 12/04/22 Rx Natacha 2 Sensor kit) empagliflozin 25 mg tablet 25 mg PO DAILY 12/04/22 12/04/22 History (Jardiance) insulin glargine U-300 conc 300 90 unit subcut HS 12/04/22 12/04/22 History uni
--- NOTE | 2022-12-04 17:25 | ADMGEN ---
This patient, Jerzy Durbin, was admitted to Medical Room 244-. Patient/family oriented to hospital policies and general routines including ID bracelet, bed and alarms, visiting hours, pain management, procedures, bathroom and other care routines, personal items, smoking policy, room service/diet, and visiting hours. Information on how to activate the Rapid Response Team has been discussed. Patient/Family are encouraged to report perceived risks to care and to ask questions if they do not understand what they are told or what they should do.
[2022-12-04] MEDS: MORPHINE SULFATE (*CRX) 4 MG/ML INJ 2 MG IV PUSH ×2 (17:32→22:37)
[2022-12-04 18:09] LABS: Glucose Point of Care 187 mg/dl (65-105)
[2022-12-04 18:32] LABS: Lactic Acid Reflex 1.7 mmol/L (0.7-2.0)
[2022-12-04 18:33] LABS: Anion Gap 11 mmol/L (8-16); Blood Urea Nitrogen 14 mg/dL (9-20); Calcium 8.5 mg/dL (8.4-10.2); Carbon Dioxide 20 mmol/L (22-30); Chloride 101 mmol/L (98-107); Estimated CRCL calculation 138 ml/min; Estimated Glomerular Filt Rate > 60; Glucose 171 mg/dL (65-110); Magnesium 1.9 mg/dL (1.6-2.3); Potassium 3.7 mmol/L (3.4-5.0); Sodium 132 mmol/L (137-145)
[2022-12-04 18:44] LABS: Beta-Hydroxybutyrate/Acetoacetate 1.26 mmol/L (0.02-0.27)
[2022-12-04 18:57] LABS: Hemoglobin A1C 8.1 % (<5.7)
[2022-12-04] MEDS: FAMOTIDINE 20 MG/2 ML VIAL IV PUSH (20:43)
[2022-12-04 23:25] LABS: Glucose Point of Care 155 mg/dl (65-105)
[2022-12-04] MEDS: HYDROmorphone HCL INJ (*CRX) 1 MG/ML SYR IV PUSH (23:33)
[2022-12-04] MEDS: metroNIDAZOLE 500 MG/ISO 100ML 500 MG/100 ML BAG 100 MG IVPB (23:36)
[2022-12-05] MEDS: SODIUM CHLORIDE 0.9% IV 1,000 ML 125 ML IV CONT ×3 (03:54→22:55)
[2022-12-05 05:39] LABS: Basophils Percent Auto 0.3 % (0.2-1.2); Eosinophils Absolute Auto 0.1 K/mm3 (0-0.3); Eosinophils Percent Auto 1.2 % (0-4.4); Hematocrit 46.8 % (42.0-52.0); Hemoglobin 15.9 g/dL (14.0-18.0); Immature Granulocyte Absolute 0.03 K/mm3 (0.00-0.031); Immature Granulocyte Percent A 0.4 % (0-0.5); Lymphocytes Absolute Auto 0.53 K/mm3 (0.9-3.2); Lymphocytes Percent Auto 7.8 % (18.3-44.2); Mean Corpuscular Hemoglobin 31.1 pg (26-34); Mean Corpuscular Volume 91.6 fl (80-100); Mean Platelet Volume 10.3 fl (7.4-10.4); Monocytes Absolute Auto 0.8 K/mm3 (0.1-0.6); Monocytes Percent Auto 11.4 % (2.6-8.5); Neutrophils Absolute Auto 5.3 K/mm3 (1.3-6.7); Neutrophils Percent Auto 78.9 % (45.5-73.1); Platelet Count Result 156 k/mm3 (150-375); Red Blood Count 5.11 M/mm3 (4.6-6.20); Red Cell Distribution Width 13.6 % (11.5-14.5); White Blood Count 6.8 K/mm3 (4.5-10.0)
[2022-12-05 06:00] VITALS: BP 154/94; PULSE 103; RESP 20; TEMP 36.9; O2SAT 96
[2022-12-05 06:01] LABS: Alanine Aminotransferase 38 U/L (6-50); Albumin Level 3.8 g/dL (3.5-5.1); Alkaline Phosphatase 60 U/L (38-126); Anion Gap 7 mmol/L (8-16); Aspartate Amino Transferase 26 U/L (17-59); Bilirubin,Total 0.7 mg/dL (0.2-1.3); Blood Urea Nitrogen 13 mg/dL (9-20); Calcium 7.8 mg/dL (8.4-10.2); Carbon Dioxide 18 mmol/L (22-30); Chloride 104 mmol/L (98-107); Estimated CRCL calculation 138 ml/min; Estimated Glomerular Filt Rate > 60; Glucose 140 mg/dL (65-110); Potassium 3.9 mmol/L (3.4-5.0); Sodium 129 mmol/L (137-145)
[2022-12-05 06:14] LABS: Glucose Point of Care 148 mg/dl (65-105)
[2022-12-05] MEDS: metroNIDAZOLE 500 MG/ISO 100ML 500 MG/100 ML BAG 100 MG IVPB ×3 (07:26→23:01)
[2022-12-05] MEDS: hydrALAZINE HCL 20 MG/ML VIAL 10 MG IV PUSH (07:27)
[2022-12-05] MEDS: FAMOTIDINE 20 MG/2 ML VIAL IV PUSH ×2 (08:12→20:04)
[2022-12-05] MEDS: PANTOPRAZOLE SODIUM IV 40 MG VIAL IV PUSH (08:12)
[2022-12-05 08:21] VITALS: RESP 20; O2SAT 96
--- NOTE | 2022-12-05 10:45 | P.PNIM_ITS ---
Progress Note: A&P Assessment and Plan (1) Ileus: Code(s): K56.7 - Ileus, unspecified Status: Acute Assessment and Plan: * Present with abdominal pain * CT showed dilated proximal and mid small bowel with air-fluid levels without obvious transition point and air-fluid levels of the ascending colon which could be seen in under colitis or adynamic ileus though partial small-bowel obstruction is not excluded. * NG placed and to suction, draining * Pain medications and antiemetics ordered * General surgery consulted thank you for your help * Continue cipro and metronidazole * WBC elevated at admission, currently 6.8 * Trend labs * KUB shows resolving ileus (2) Umbilical hernia: Code(s): K42.9 - Umbilical hernia without obstruction or gangrene Status: Acute Assessment and Plan: * CT of the abdomen showed 4.8cm wide fat containing umbilical or periumbilical hernia * No tenderness noted * General surgery on board * Continue to trend KUBs (3) Type 2 diabetes mellitus with hyperglycemia: Code(s): E11.65 - Type 2 diabetes mellitus with hyperglycemia Status: Acute Assessment and Plan: * Glucose 140 today * A1c 8.1 * ISS * Accu Cheks * Continue home Lantus 90 units at bedtime * Hold metformin and Jardiance while NPO * Trend glucose * Adjust therapy as indicated (4) Hypertension: Code(s): I10 - Essential (primary) hypertension Status: Acute Assessment and Plan: * Current BP is 154/94 * Add hydralazine PRN with parameters * Trend BP * Adjust therapy as indicated (5) Dyslipidemia: Code(s): E78.5 - Hyperlipidemia, unspecified Status: Acute Assessment and Plan: * Hold statin for now * Restart home medications as indicated Time Spent With Patient Time: 52 minutes Time with patient: Greater than 35 minutes Subjective Date/time seen: 12/05/22 1045 Interval history: 12/05/22 104 patient is doing okay today. Patient stated that he was a little headache however he is not having any abdominal pain. He did state that he is starting to have some gas however nothing other than gas at this time. Abdomen is less distended this morning. He denies any chest pain, shortness a breath, nausea vomiting diarrhea. He did state that he feels sore in his throat. Will order Chloraseptic spray. 12/04/22? 16:50 This is a 52-year-old male with history of umbilical hernia, kidney stones, hypertension, hyperlipidemia, and diabetes who presented to the emergency department from home for evaluation of abdominal pain. Last night about 21:00 he developed the sudden onset of periumbilical abdominal pain followed by nausea, vomiting, bloating, and belching. The pain does not radiate and he has not noticed any significant alleviating factors. He slept poorly, changing positions frequently which unfortunately did not seem to help the pain much. He did not take analgesics or [id number] medications for the pain. This morning he had a small, watery stool without blood or mucus. Due to ongoing pain he came in for evaluation as he was concerned that perhaps the pain was related to an umbilical hernia that he has had for years. He denies fever, chills, sweats, much emesis, melena, and hematochezia. No chest or pleuritic pain.? No shortness of breath. He has not had any sick contacts. He was afebrile on arrival to the emergency depart
--- NOTE | 2022-12-05 10:45 | PM.IMPN ---
Progress Note: A&P Assessment and Plan (1) Ileus: Code(s): K56.7 - Ileus, unspecified Status: Acute Assessment and Plan: Present with abdominal pain CT showed dilated proximal and mid small bowel with air-fluid levels without obvious transition point and air-fluid levels of the ascending colon which could be seen in under colitis or adynamic ileus though partial small-bowel obstruction is not excluded. NG placed and to suction, draining Pain medications and antiemetics ordered General surgery consulted thank you for your help Continue cipro and metronidazole WBC elevated at admission, currently 6.8 Trend labs KUB shows resolving ileus (2) Umbilical hernia: Code(s): K42.9 - Umbilical hernia without obstruction or gangrene Status: Acute Assessment and Plan: CT of the abdomen showed 4.8cm wide fat containing umbilical or periumbilical hernia No tenderness noted General surgery on board Continue to trend KUBs (3) Type 2 diabetes mellitus with hyperglycemia: Code(s): E11.65 - Type 2 diabetes mellitus with hyperglycemia Status: Acute Assessment and Plan: Glucose 140 today A1c 8.1 ISS Accu Cheks Continue home Lantus 90 units at bedtime Hold metformin and Jardiance while NPO Trend glucose Adjust therapy as indicated (4) Hypertension: Code(s): I10 - Essential (primary) hypertension Status: Acute Assessment and Plan: Current BP is 154/94 Add hydralazine PRN with parameters Trend BP Adjust therapy as indicated (5) Dyslipidemia: Code(s): E78.5 - Hyperlipidemia, unspecified Status: Acute Assessment and Plan: Hold statin for now Restart home medications as indicated Time Spent With Patient Time: 52 minutes Time with patient: Greater than 35 minutes Subjective Date/time seen: 12/05/22 1045 Interval history: 12/05/22 1045 patient is doing okay today. Patient stated that he was a little headache however he is not having any abdominal pain. He did state that he is starting to have some gas however nothing other than gas at this time. Abdomen is less distended this morning. He denies any chest pain, shortness a breath, nausea vomiting diarrhea. He did state that he feels sore in his throat. Will order Chloraseptic spray. 12/04/22? 16:50 This is a 52-year-old male with history of umbilical hernia, kidney stones, hypertension, hyperlipidemia, and diabetes who presented to the emergency department from home for evaluation of abdominal pain. Last night about 21:00 he developed the sudden onset of periumbilical abdominal pain followed by nausea, vomiting, bloating, and belching. The pain does not radiate and he has not noticed any significant alleviating factors. He slept poorly, changing positions frequently which unfortunately did not seem to help the pain much. He did not take analgesics or [id number] medications for the pain. This morning he had a small, watery stool without blood or mucus. Due to ongoing pain he came in for evaluation as he was concerned that perhaps the pain was related to an umbilical hernia that he has had for years. He denies fever, chills, sweats, much emesis, melena, and hematochezia. No chest or pleuritic pain.? No shortness of breath. He has not had any sick contacts. He was afebrile on arrival to the emergency department.? Blood pressures have been running high in the 150s to 180 systolic. Pertinent labs include a WBC of 11.5 hemoglobin 18.1, sodium 132, lactic acid 2.2, and glucose 173.? LFTs and lipase were within normal limits. UA had 3+ glucose and 4+ ketones. CT of the abdomen and pelvis showed dilated proximal and mid small bowel with air-fluid levels without obvious transition point and air-fluid levels of the ascending colon which may be related to enterocolitis or adynamic ileus though partial small-bowel obs
[2022-12-05 12:05] LABS: Glucose Point of Care 130 mg/dl (65-105)
[2022-12-05 14:00] VITALS: BP 138/85; PULSE 94; RESP 18; TEMP 36.9; O2SAT 97
--- NOTE | 2022-12-05 14:06 | PM.PNGS ---
Progress Note: A&P Assessment and Plan (1) Lower abdominal pain of unknown etiology: Code(s): R10.30 - Lower abdominal pain, unspecified Status: Acute Assessment and Plan: improving. No more diarrhea. Much less distended. Still having pain but not as severe. Continue NG suction with serial abdominal exam, labs, plain films of the abdomen. (2) Umbilical hernia without mention of obstruction or gangrene: Code(s): K42.9 - Umbilical hernia without obstruction or gangrene Status: Chronic Assessment and Plan: Remains reducible and nontender (3) Type 2 diabetes mellitus: Code(s): E11.9 - Type 2 diabetes mellitus without complications Status: Chronic Assessment and Plan: patient monitoring his own blood sugar. Showed me the value of 97 when I was in the room. Subjective Subjective Date/Time Seen: 12/05/22 14:06 Patient reports: feels better ( Slightly better, much less bloated), pain is less, no flatus, no bowel movement and afebrile Review of Systems Review of Systems: All systems reviewed & are unremarkable except as noted in HPI and below ( HPI and those items noted below) Constitutional: Constitutional: Denies chills and Denies fever(s) Cardiovascular: Cardiovascular: Denies chest pain, Denies diaphoresis, Denies dyspnea and Denies paroxysmal nocturnal dyspnea Respiratory: Respiratory: Denies chest congestion, Denies cough and Denies dyspnea Integumentary/Breasts: Skin/Breast: Denies lesions and Denies rash Exam Const: General: comfortable and no acute distress; No confusion Orientation/consciousness: patient oriented x3 and No confusion GI: Inspection: distended and visible herniation ( umbilical, less protuberant) GI Palp: Yes Soft to palpation, Yes Tenderness to palpation present (GI) ( less tender than yesterday, much less distended), No Guarding due to palpation present (GI), Yes Hernia present ( smaller reducible umbilical hernia), No Palpable mass present and No Rebound tenderness present Auscultation: absent bowel sounds Neuro: General: patient oriented x3, no focal motor deficits and No confusion Extrem: General: no calf tenderness and no edema Psych: Affect: normal affect Insight: Good insight present (Psych) Judgement: Good judgement present (Psych) Objective Data Vital Signs Vital Signs: Vital Signs - 24 hr 12/04/22 14:15 12/04/22 14:16 12/04/22 14:30 Temperature Pulse Rate 104 H 105 H 106 H Respiratory Rate 20 15 21 H Blood Pressure 156/97 H Pulse Oximetry 93 94 94 Oxygen Delivery 12/04/22 14:31 12/04/22 14:45 12/04/22 14:46 Temperature Pulse Rate 108 H 99 101 H Respiratory Rate 20 15 21 H Blood Pressure 157/87 H 148/91 H Pulse Oximetry 93 96 95 Oxygen Delivery 12/04/22 14:47 12/04/22 15:00 12/04/22 15:01 Temperature Pulse Rate 101 H 101 H 101 H Respiratory Rate 20 16 14 Blood Pressure 146/96 H Pulse Oximetry 93 92 93 Oxygen Delivery 12/04/22 15:15 12/04/22 15:16 12/04/22 15:30 Temperature Pulse Rate 103 H 106 H 101 H Respiratory Rate 22 H 22 H 13 Blood Pressure 139/98 H Pulse Oximetry 96 96 98 Oxygen Delivery 12/04/22 15:31 12/04/22 15:45 12/04/22 15:46 Temperature Pulse Rate 98 100 103 H Respiratory Rate 19 21 H 20 Blood Pressure 144/107 H 154/96 H Pulse Oximetry 96 96 99 Oxygen Delivery 12/04/22 16:00 12/04/22 16:01 12/04/22 16:15 Temperature Pulse Rate 100 97 99 Respiratory Rate 22 H 21 H 26 H Blood Pressure 157/94 H Pulse Oximetry 98 97 94 Oxygen Delivery 12/04/22 16:16 12/04/22 16:30 12/04/22 16:31 Temperature Pulse Rate 103 H 108 H 105 H Respiratory Rate 23 H 20 23 H Blood Pressure 144/100 H 182/143 H Pulse Oximetry 96 97 95 Oxygen Delivery 12/04/22 16:59 12/04/22 18:31 12/04/22 20:38 Temperature 36.9 C 36.6 C 37.2 C Pulse Rate 105 H 105 H 113 H Respiratory Rate 105 H 18 20 Blood Pressure 157/104 H 151/95 H 146
[2022-12-05] MEDS: ENOXAPARIN 40 MG/0.4 ML SYRINGE SUB-Q (14:54)
[2022-12-05 17:43] LABS: Glucose Point of Care 133 mg/dl (65-105)
[2022-12-05] MEDS: PHENOL/SOD PHENO SPRAY CHERRY (*BKC) 1 SPRAY MUCOUS MEM (18:25)
[2022-12-05 22:21] VITALS: BP 139/84; PULSE 90; RESP 18; TEMP 36.4; O2SAT 97
[2022-12-05 23:09] LABS: Glucose Point of Care 108 mg/dl (65-105)
[2022-12-06 05:24] LABS: Glucose Point of Care 105 mg/dl (65-105)
[2022-12-06 05:54] LABS: Basophils Percent Auto 0.3 % (0.2-1.2); Eosinophils Absolute Auto 0.1 K/mm3 (0-0.3); Eosinophils Percent Auto 2.2 % (0-4.4); Hematocrit 49.8 % (42.0-52.0); Hemoglobin 16.6 g/dL (14.0-18.0); Immature Granulocyte Absolute 0.03 K/mm3 (0.00-0.031); Immature Granulocyte Percent A 0.5 % (0-0.5); Lymphocytes Absolute Auto 0.82 K/mm3 (0.9-3.2); Lymphocytes Percent Auto 13.1 % (18.3-44.2); Mean Corpuscular HGB Conc 33.3 g/dl (32-36); Mean Corpuscular Hemoglobin 31.2 pg (26-34); Mean Corpuscular Volume 93.6 fl (80-100); Mean Platelet Volume 9.9 fl (7.4-10.4); Monocytes Percent Auto 15.2 % (2.6-8.5); Neutrophils Absolute Auto 4.3 K/mm3 (1.3-6.7); Neutrophils Percent Auto 68.7 % (45.5-73.1); Platelet Count Result 150 k/mm3 (150-375); Red Blood Count 5.32 M/mm3 (4.6-6.20); Red Cell Distribution Width 13.6 % (11.5-14.5); White Blood Count 6.3 K/mm3 (4.5-10.0)
[2022-12-06 06:00] VITALS: BP 130/78; PULSE 81; RESP 20; TEMP 36.3; O2SAT 99
[2022-12-06 06:14] LABS: Alanine Aminotransferase 34 U/L (6-50); Albumin Level 3.9 g/dL (3.5-5.1); Alkaline Phosphatase 62 U/L (38-126); Anion Gap 11 mmol/L (8-16); Aspartate Amino Transferase 23 U/L (17-59); Bilirubin,Total 0.7 mg/dL (0.2-1.3); Blood Urea Nitrogen 12 mg/dL (9-20); Calcium 7.9 mg/dL (8.4-10.2); Carbon Dioxide 17 mmol/L (22-30); Chloride 106 mmol/L (98-107); Estimated CRCL calculation 140 ml/min; Estimated Glomerular Filt Rate > 60; Glucose 112 mg/dL (65-110); Magnesium 2.3 mg/dL (1.6-2.3); Potassium 3.7 mmol/L (3.4-5.0); Sodium 134 mmol/L (137-145)
[2022-12-06] MEDS: SODIUM CHLORIDE 0.9% IV 1,000 ML 125 ML IV CONT (07:52)
[2022-12-06] MEDS: metroNIDAZOLE 500 MG/ISO 100ML 500 MG/100 ML BAG 100 MG IVPB ×2 (07:52→17:10)
[2022-12-06] MEDS: PANTOPRAZOLE SODIUM IV 40 MG VIAL IV PUSH (08:00)
[2022-12-06] MEDS: ENOXAPARIN 40 MG/0.4 ML SYRINGE SUB-Q (08:00)
[2022-12-06] MEDS: FAMOTIDINE 20 MG/2 ML VIAL IV PUSH (08:00)
--- NOTE | 2022-12-06 11:15 | PM.IMPN ---
Progress Note: A&P Assessment and Plan (1) Ileus: Code(s): K56.7 - Ileus, unspecified Status: Acute Assessment and Plan: Present with abdominal pain CT showed dilated proximal and mid small bowel with air-fluid levels without obvious transition point and air-fluid levels of the ascending colon which could be seen in under colitis or adynamic ileus though partial small-bowel obstruction is not excluded. Sm bowel xray mildly dilated jejunum consistent with adynamic ileus NG is clamped at this time Pain medications and antiemetics ordered General surgery consulted thank you for your help Continue cipro and metronidazole WBC elevated at admission, currently 6.3 Trend labs KUB shows resolving ileus (2) Umbilical hernia: Code(s): K42.9 - Umbilical hernia without obstruction or gangrene Status: Chronic Assessment and Plan: CT of the abdomen showed 4.8cm wide fat containing umbilical or periumbilical hernia No tenderness noted General surgery on board Continue to trend KUBs (3) Type 2 diabetes mellitus with hyperglycemia: Code(s): E11.65 - Type 2 diabetes mellitus with hyperglycemia Status: Acute Assessment and Plan: Glucose 112 today A1c 8.1 ISS Accu Cheks Continue home Lantus 90 units at bedtime Hold metformin and Jardiance while NPO Trend glucose Adjust therapy as indicated (4) Hypertension: Code(s): I10 - Essential (primary) hypertension Status: Acute Assessment and Plan: Current BP is 130/78 Add hydralazine PRN with parameters Trend BP Adjust therapy as indicated (5) Dyslipidemia: Code(s): E78.5 - Hyperlipidemia, unspecified Status: Acute Assessment and Plan: Hold statin for now Restart home medications as indicated Time Spent With Patient Time: 48 minutes Time with patient: Greater than 35 minutes Subjective Date/time seen: 12/06/22 1115 Interval history: 12/06/22 1115 NG tube is clamped at this time. He did state that he has had 3 bowel movements and he is feeling a lot better today. He denies any current chest pain, shortness of breath, nausea, vomiting, diarrhea, constipation, weakness or fatigue. 12/05/22 1045 patient is doing okay today. Patient stated that he was a little headache however he is not having any abdominal pain. He did state that he is starting to have some gas however nothing other than gas at this time. Abdomen is less distended this morning. He denies any chest pain, shortness a breath, nausea vomiting diarrhea. He did state that he feels sore in his throat. Will order Chloraseptic spray. 12/04/22? 16:50 This is a 52-year-old male with history of umbilical hernia, kidney stones, hypertension, hyperlipidemia, and diabetes who presented to the emergency department from home for evaluation of abdominal pain. Last night about 21:00 he developed the sudden onset of periumbilical abdominal pain followed by nausea, vomiting, bloating, and belching. The pain does not radiate and he has not noticed any significant alleviating factors. He slept poorly, changing positions frequently which unfortunately did not seem to help the pain much. He did not take analgesics or ynuz-chz-takwthk medications for the pain. This morning he had a small, watery stool without blood or mucus. Due to ongoing pain he came in for evaluation as he was concerned that perhaps the pain was related to an umbilical hernia that he has had for years. He denies fever, chills, sweats, much emesis, melena, and hematochezia. No chest or pleuritic pain.? No shortness of breath. He has not had any sick contacts. He was afebrile on arrival to the emergency department.? Blood pressures have been running high in the 150s to 180 systolic. Pertinent labs include a WBC of 11.5 hemoglobin 18.1, sodium 132, lactic acid 2.2, and glucose 173.? LFTs and lipa
--- NOTE | 2022-12-06 11:15 | P.PNIM_ITS ---
Progress Note: A&P Assessment and Plan (1) Ileus: Code(s): K56.7 - Ileus, unspecified Status: Acute Assessment and Plan: * Present with abdominal pain * CT showed dilated proximal and mid small bowel with air-fluid levels without obvious transition point and air-fluid levels of the ascending colon which could be seen in under colitis or adynamic ileus though partial small-bowel obstruction is not excluded. * Sm bowel xray mildly dilated jejunum consistent with adynamic ileus * NG is clamped at this time * Pain medications and antiemetics ordered * General surgery consulted thank you for your help * Continue cipro and metronidazole * WBC elevated at admission, currently 6.3 * Trend labs * KUB shows resolving ileus (2) Umbilical hernia: Code(s): K42.9 - Umbilical hernia without obstruction or gangrene Status: Chronic Assessment and Plan: * CT of the abdomen showed 4.8cm wide fat containing umbilical or periumbilical hernia * No tenderness noted * General surgery on board * Continue to trend KUBs (3) Type 2 diabetes mellitus with hyperglycemia: Code(s): E11.65 - Type 2 diabetes mellitus with hyperglycemia Status: Acute Assessment and Plan: * Glucose 112 today * A1c 8.1 * ISS * Accu Cheks * Continue home Lantus 90 units at bedtime * Hold metformin and Jardiance while NPO * Trend glucose * Adjust therapy as indicated (4) Hypertension: Code(s): I10 - Essential (primary) hypertension Status: Acute Assessment and Plan: * Current BP is 130/78 * Add hydralazine PRN with parameters * Trend BP * Adjust therapy as indicated (5) Dyslipidemia: Code(s): E78.5 - Hyperlipidemia, unspecified Status: Acute Assessment and Plan: * Hold statin for now * Restart home medications as indicated Time Spent With Patient Time: 48 minutes Time with patient: Greater than 35 minutes Subjective Date/time seen: 12/06/22 1115 Interval history: 12/06/22 111 NG tube is clamped at this time. He did state that he has had 3 bowel movements and he is feeling a lot better today. He denies any current chest pain, shortness of breath, nausea, vomiting, diarrhea, constipation, weakness or fatigue. 12/05/22 1045 patient is doing okay today. Patient stated that he was a little headache however he is not having any abdominal pain. He did state that he is starting to have some gas however nothing other than gas at this time. Abdomen is less distended this morning. He denies any chest pain, shortness a breath, nausea vomiting diarrhea. He did state that he feels sore in his throat. Will order Chloraseptic spray. 12/04/22? 16:50 This is a 52-year-old male with history of umbilical hernia, kidney stones, hypertension, hyperlipidemia, and diabetes who presented to the emergency department from home for evaluation of abdominal pain. Last night about 21:00 he developed the sudden onset of periumbilical abdominal pain followed by nausea, vomiting, bloating, and belching. The pain does not radiate and he has not noticed any significant alleviating factors. He slept poorly, changing positions frequently which unfortunately did not seem to help the pain much. He did not take analgesics or [id number] medications for the pain. This morning he had a small, watery stool without blood or mucus. Due to ongoing pain h
[2022-12-06 12:16] LABS: Glucose Point of Care 151 mg/dl (65-105)
--- NOTE | 2022-12-06 13:13 | PM.PNGS ---
Progress Note: A&P Assessment and Plan (1) Lower abdominal pain of unknown etiology: Code(s): R10.30 - Lower abdominal pain, unspecified Status: Acute Assessment and Plan: Appears this was enterocolitis with some ileus. Contrast is moving through and he feels much better. Will DC NG tube and start full liquids. No evidence small-bowel obstruction. (2) Umbilical hernia: Code(s): K42.9 - Umbilical hernia without obstruction or gangrene Status: Chronic Assessment and Plan: Asymptomatic. Subjective Subjective Date/Time Seen: 12/06/22 13:13 Patient reports: feels better, pain is less, flatus, bowel movement and afebrile Review of Systems Review of Systems: All systems reviewed & are unremarkable except as noted in HPI and below (HPI) Exam Const: General: comfortable, no acute distress, alert and awake; No confusion Orientation/consciousness: patient oriented x3 and No confusion GI: Inspection: distended and visible herniation GI Palp: Yes Soft to palpation, No Tenderness to palpation present (GI), No Guarding due to palpation present (GI), Yes Hernia present and No Rebound tenderness present Auscultation: normal bowel sounds Neuro: General: patient oriented x3, no focal motor deficits and No confusion Extrem: General: no calf tenderness and no edema Psych: Affect: normal affect Insight: Good insight present (Psych) Judgement: Good judgement present (Psych) Objective Data Vital Signs Vital Signs: Vital Signs - 24 hr 12/05/22 14:00 12/05/22 22:21 12/06/22 06:00 Temperature 36.9 C 36.4 C 36.3 C L Pulse Rate 94 90 81 Respiratory Rate 18 18 20 Blood Pressure 138/85 139/84 130/78 Pulse Oximetry 97 97 99 Intake/Output Intake/Output: Intake & Output 12/03/22 12/04/22 12/05/22 12/06/22 23:59 23:59 23:59 23:59 Intake Total 3100 3740 1100 Output Total 1700 5950 2750 Balance 1400 -2210 -1650 Meds/Results Medications: Active Medications Generic Name Dose Route Start Last Admin Trade Name Freq PRN Reason Stop Dose Admin Dextrose 12.5 gm 12/04/22 17:23 Dextrose 50% 25 Gm/50 Ml Syringe IV PUSH PRN PRN Hypoglycemia Protocol Enoxaparin Sodium 40 mg 12/06/22 09:00 12/06/22 08:00 Enoxaparin 40 Mg/0.4 Ml Syringe SUB-Q 40 mg DAILY BOSSMAN Administration Famotidine 20 mg 12/06/22 21:00 Famotidine 20 Mg Tablet PO Q12HR BOSSMAN Glucagon 1 mg 12/04/22 17:23 Glucagon For Inj 1 Mg Vial IM PRN PRN Hypoglycemia Protocol Glucose 15 gm 12/04/22 17:23 Glucose Oral Gel 15 Gm Of Glucse In 37.5 Gm Tube PO PRN PRN Hypoglycemia Protocol Hydralazine HCl 10 mg 12/05/22 06:57 12/05/22 07:27 Hydralazine Hcl 20 Mg/Ml Vial IV PUSH 10 mg Q8H PRN Administration Blood Pressure - High Hydromorphone HCl 1 mg 12/04/22 23:23 12/04/22 23:33 Hydromorphone Hcl Inj (*Crx) 1 Mg/Ml Syr IV PUSH 1 mg Q3H PRN Administration Pain Rated 7-10 Sodium Chloride 1,000 mls @ 80 mls/hr 12/04/22 15:25 12/06/22 07:52 Normal Saline Iv IV CONT 125 mls/hr .[id number] BOSSMAN Administration Dextrose 1,000 mls @ 100 mls/hr 12/04/22 17:23 Dextrose 5% 1,000 Ml IVPB PRN PRN Hypoglycemia Protocol Ceftriaxone Sodium/Dextrose 1 gm in 50 mls @ 100 mls/hr 12/04/22 23:30 12/05/22 20:34 Rocephin 1 Gm/D5w 50 Ml IVPB Infused HS BOSSMAN Infusion Metronidazole 500 mg in 100 mls @ 100 mls/hr 12/05/22 00:00 12/06/22 07:52 Flagyl 500 Mg/Iso Soln 100 Ml IVPB 100 mls/hr Q8H BOSSMAN Administration Insulin Aspart 2 - 5 units 12/04/22 18:00 12/06/22 05:18 Insulin Aspart (*Bkc) 100 Units/Ml SUB-Q Not Given Q6HR [facility] Protocol Ondansetron HCl 4 mg 12/04/22 15:22 12/04/22 23:32 Ondansetron Inj 4 Mg/2 Ml Vial IV PUSH 4 mg Q4H PRN Administration Nausea Phenol 1 spray 12/05/22 17:50 12/05/22 18:25 Phenol/Sod Pheno Burna Campos (*Bkc) MUCOUS MEM 1 s
[2022-12-06 14:38] VITALS: BP 139/88; PULSE 90; RESP 16; TEMP 36.6; O2SAT 100
--- NOTE | 2022-12-06 15:58 | PC.NURSE ---
On 12/06/22, the student, [Corine Bojorquez ], provided care and completed [facility] documentation on this patient. I have reviewed the student's documentation and agree with the findings.
[2022-12-06] MEDS: SODIUM CHLORIDE 0.9% IV 1,000 ML 80 ML IV CONT (17:11)
[2022-12-06 17:20] LABS: Glucose Point of Care 166 mg/dl (65-105)
[2022-12-06] MEDS: FAMOTIDINE 20 MG TABLET PO (20:45)
[2022-12-06 22:19] VITALS: BP 129/87; PULSE 89; RESP 20; TEMP 36.3; O2SAT 99
[2022-12-07] MEDS: metroNIDAZOLE 500 MG/ISO 100ML 500 MG/100 ML BAG 100 MG IVPB ×2 (00:40→07:39)
[2022-12-07 06:00] VITALS: BP 138/93; PULSE 81; RESP 20; TEMP 36.3; O2SAT 98
[2022-12-07] MEDS: FAMOTIDINE 20 MG TABLET PO (08:08)
[2022-12-07] MEDS: ENOXAPARIN 40 MG/0.4 ML SYRINGE SUB-Q (08:08)
[2022-12-07 08:12] VITALS: RESP 20; O2SAT 99
[2022-12-07 08:38] LABS: Glucose Point of Care 160 mg/dl (65-105)
--- NOTE | 2022-12-07 10:13 | PM.PNGS ---
Progress Note: A&P Assessment and Plan (1) Lower abdominal pain of unknown etiology: Code(s): R10.30 - Lower abdominal pain, unspecified Status: Resolved Assessment and Plan: small-bowel follow-through yesterday was negative. Patient tolerating liquids and then solid food this morning quite well. He feels back to normal. Okay to discharge on diabetic diet from a my standpoint. No surgical follow-up needed. I think this was an entero- colitis. I have seen at least 3 other patients with very similar symptoms and findings in the last week. (2) Umbilical hernia without mention of obstruction or gangrene: Code(s): K42.9 - Umbilical hernia without obstruction or gangrene Status: Chronic Assessment and Plan: Asymptomatic. Advised patient to see me as an outpatient to discuss repair. He will probably follow up with me for this in the summer. Subjective Subjective Date/Time Seen: 12/07/22 10:13 Patient reports: no new complaints, feels better, tolerating a regular diet, bowel movement and afebrile Review of Systems Review of Systems: All systems reviewed & are unremarkable except as noted in HPI and below (HPI) Exam Const: General: comfortable and no acute distress; No confusion Orientation/consciousness: patient oriented x3 and No confusion GI: Inspection: visible herniation GI Palp: Yes Soft to palpation, No Tenderness to palpation present (GI), No Guarding due to palpation present (GI), Yes Hernia present, No Palpable mass present and No Rebound tenderness present Auscultation: normal bowel sounds Neuro: General: patient oriented x3, no focal motor deficits and No confusion Extrem: General: no calf tenderness and no edema Psych: Affect: normal affect Insight: Good insight present (Psych) Judgement: Good judgement present (Psych) Objective Data Vital Signs Vital Signs: Vital Signs - 24 hr 12/06/22 14:38 12/06/22 20:00 12/06/22 22:19 Temperature 36.6 C 36.3 C L Pulse Rate 90 89 Respiratory Rate 16 20 Blood Pressure 139/88 129/87 Pulse Oximetry 100 99 Oxygen Delivery Room Air 12/07/22 06:00 12/07/22 08:12 Temperature 36.3 C L Pulse Rate 81 Respiratory Rate 20 20 Blood Pressure 138/93 H Pulse Oximetry 98 99 Oxygen Delivery Room Air Intake/Output Intake/Output: Intake & Output 12/04/22 12/05/22 12/06/22 12/07/22 23:59 23:59 23:59 23:59 Intake Total 3100 3740 4380 2040 Output Total 1700 5950 2750 Balance 1400 -2210 1630 2040 Meds/Results Medications: Active Medications Generic Name Dose Route Start Last Admin Trade Name Freq PRN Reason Stop Dose Admin Dextrose 12.5 gm 12/04/22 17:23 Dextrose 50% 25 Gm/50 Ml Syringe IV PUSH PRN PRN Hypoglycemia Protocol Enoxaparin Sodium 40 mg 12/06/22 09:00 12/07/22 08:08 Enoxaparin 40 Mg/0.4 Ml Syringe SUB-Q 40 mg DAILY BOSSMAN Administration Famotidine 20 mg 12/06/22 21:00 12/07/22 08:08 Famotidine 20 Mg Tablet PO 20 mg Q12HR BOSSMAN Administration Glucagon 1 mg 12/04/22 17:23 Glucagon For Inj 1 Mg Vial IM PRN PRN Hypoglycemia Protocol Glucose 15 gm 12/04/22 17:23 Glucose Oral Gel 15 Gm Of Glucse In 37.5 Gm Tube PO PRN PRN Hypoglycemia Protocol Hydralazine HCl 10 mg 12/05/22 06:57 12/05/22 07:27 Hydralazine Hcl 20 Mg/Ml Vial IV PUSH 10 mg Q8H PRN Administration Blood Pressure - High Hydromorphone HCl 1 mg 12/04/22 23:23 12/04/22 23:33 Hydromorphone Hcl Inj (*Crx) 1 Mg/Ml Syr IV PUSH 1 mg Q3H PRN Administration Pain Rated 7-10 Dextrose 1,000 mls @ 100 mls/hr 12/04/22 17:23 Dextrose 5% 1,000 Ml IVPB PRN PRN Hypoglycemia Protocol Ceftriaxone Sodium/Dextrose 1 gm in 50 mls @ 100 mls/hr 12/04/22 23:30 12/06/22 21:15 Rocephin 1 Gm/D5w 50 Ml IVPB Infused HS BOSSMAN Infusion Metronidazole 500 mg in 100 mls @ 100 mls/hr 12/05/22 00:00 12/07/22 08:40 Kandace
--- NOTE | 2022-12-07 10:47 | PM.DS ---
DS: Admitting Diagnosis Discharge Date 12/07/2022 Admitting Diagnosis abdominal pain DS: Discharge Diagnosis Discharge Diagnosis (1) Ileus: Code(s): K56.7 - Ileus, unspecified Status: Acute Assessment and Plan: Patient presented with abdominal pain and CT showed dilated proximal and mid small bowel with air-fluid levels without obvious transition point and air-fluid levels of the ascending colon which could be seen in enterocolitis or adynamic ileus though partial small-bowel obstruction is not excluded. Seen in consultation by General surgery Improved with bowel rest, NG decompression, IV fluids Diet slowly advanced. Pt able to tolerate regular diabetic diet Buford to be related to enterocolitis and received antibiotics. Continue PO cefdinir and flagyl as outpatient KUB showed resolution (2) Umbilical hernia: Code(s): K42.9 - Umbilical hernia without obstruction or gangrene Status: Chronic Assessment and Plan: CT of the abdomen showed 4.8cm wide fat containing umbilical or periumbilical hernia Outpatient general surgery follow up for consideration of repair (3) Type 2 diabetes mellitus with hyperglycemia: Code(s): E11.65 - Type 2 diabetes mellitus with hyperglycemia Status: Acute Assessment and Plan: A1c 8.1 Continue home metformin, jardiance, toujeo (4) Hypertension: Code(s): I10 - Essential (primary) hypertension Status: Acute Assessment and Plan: Blood pressures stable. Continue lisinopril and amlodipine DS: Summary Hospital Course Hospital Course: date of admission 12/04/2022 date of discharge: 12/07/2022 Jerzy Durbin is a 52 year old male with history of hypertension, hyperlipidemia, type 2 diabetes mellitus, and kidney stones who presented to the emergency department on 12/04/2022 with complaints of periumbilical plain, bloating, loose stool, and low-grade fever. On presentation to the ED, he was mildly tachypneic and tachycardic, additional vital signs stable, patient was afebrile, mild leukocytosis of 11.5, additional laboratory workup relatively unremarkable, and CT of abdomen/pelvis showed dilated proximal and mid small bowel with air-fluid levels. He was admitted to the hospitalist service for further evaluation and management was seen in consultation by General surgery. Please see above for further details. Had symptomatic improvement following bowel rest, NG decompression, and IV fluid rehydration. Findings were consistent with ileus felt to be related to enterocolitis. diet was slowly advanced and patient was able to tolerate a diabetic diet. His symptoms resolved and he was feeling improved, having regular bowel movements. Given his overall improvement, he was determined to no longer require inpatient care was discharged in hemodynamically stable condition on 12/07/2022. He will follow-up with General surgery as an outpatient for evaluation of his umbilical hernia. Follow-up with his PCP week for further monitoring. He will continue p.o. cefdinir and Flagyl for treatment of enterocolitis. discussed with the patient worrisome signs and symptoms for which to return and he was educated on his medications. Time Spent with Patient Time attestation: Total time spent providing and/or coordinating discharge services: 40 minutes Time spent: Greater than 30 minutes Exam Narrative: General: well-nourished, well-appearing 52-year-old male, laying in bed, comfortable, NARD Neuro: awake, alert and oriented x4, speech clear, no focal neuro deficits noted HEENMT: normocephalic, atraumatic, EOMI, sclerae anicteric, moist oral mucosa Respiratory: Clear to auscultation bilaterally without crackles, rhonchi or wheezes, nonlabored breathing Cardio: regular rate, regular rhythm with S1-S2 Abdomen: mildly distended, normoactive bowel sounds, soft, nontender to palpation Extremities: no edema, erythema, or tenderness to
[2022-12-07 10:50] VITALS: O2SAT 99
== END 2022-12-07 11:30 | disposition home or self-care (01) | DRG 392 ==
LOC: ANHED 12:54 → ANH2MED 17:01
PROVIDERS: Nurse Practitioner; Physician Assistant; Admitting Provider Student in an Organized Health Care Education/Training Program; Emergency Provider General Practice; PCP Family Medicine; Visit Provider Physician Assistant
DX: K52.9 Noninfective gastroenteritis and colitis, unspecified (principal); K56.0 Paralytic ileus; K42.9 Umbilical hernia without obstruction or gangrene; E11.65 Type 2 diabetes mellitus with hyperglycemia; I10 Essential (primary) hypertension; E78.5 Hyperlipidemia, unspecified; D72.829 Elevated white blood cell count, unspecified; R00.0 Tachycardia, unspecified; E86.0 Dehydration; Z87.442 Personal history of urinary calculi
CPT/HCPCS: 36415; 74018; 74177; 74250; 80048; 80053; 81001; 82010; 82948; 83036; 83605; 83690; 83735; 85025; 87045; 87269; 87272; 87427; 96361; 96375; 99285; A9270; C9113; J0131; J0360; J0696; J1170; J1650; J2270; J2405; J7030; Q9967

== ENCOUNTER 2023-05-05 06:41 | Outpatient (CLI) | payer OTHER, SELFPAY ==
[2023-05-05 07:23] LABS: Alanine Aminotransferase 46 U/L (6-50); Albumin Level 4.7 g/dL (3.5-5.1); Alkaline Phosphatase 75 U/L (38-126); Anion Gap 12 mmol/L (8-16); Aspartate Amino Transferase 35 U/L (17-59); Blood Urea Nitrogen 14 mg/dL (9-20); Carbon Dioxide 23 mmol/L (22-30); Chloride 100 mmol/L (98-107); Estimated Glomerular Filt Rate > 60; Glucose 144 mg/dL (65-110); Potassium 3.8 mmol/L (3.4-5.0); Sodium 135 mmol/L (137-145)
[2023-05-05 07:57] LABS: Hemoglobin A1C 8.1 % (<5.7)
== END 2023-05-05 06:42 | disposition home or self-care (01) ==
PROVIDERS: PCP Family Medicine; Visit Provider Physician Assistant
DX: E11.65 Type 2 diabetes mellitus with hyperglycemia (principal)
CPT/HCPCS: 36415; 80053; 83036

== ENCOUNTER 2023-09-07 06:55 | Outpatient (CLI) | payer OTHER, SELFPAY ==
[2023-09-07 08:03] LABS: Basophils Absolute Auto 0.1 K/mm3 (0.0-0.1); Basophils Percent Auto 0.8 % (0.2-1.2); Eosinophils Absolute Auto 0.3 K/mm3 (0-0.3); Eosinophils Percent Auto 4.8 % (0-4.4); Hematocrit 50.2 % (42.0-52.0); Hemoglobin 17.2 g/dL (14.0-18.0); Immature Granulocyte Absolute 0.02 K/mm3 (0.00-0.031); Immature Granulocyte Percent A 0.3 % (0-0.5); Lymphocytes Absolute Auto 0.97 K/mm3 (0.9-3.2); Lymphocytes Percent Auto 16.1 % (18.3-44.2); Mean Corpuscular HGB Conc 34.3 g/dl (32-36); Mean Corpuscular Hemoglobin 31.4 pg (26-34); Mean Corpuscular Volume 91.6 fl (80-100); Monocytes Absolute Auto 0.8 K/mm3 (0.1-0.6); Monocytes Percent Auto 12.8 % (2.6-8.5); Neutrophils Absolute Auto 3.9 K/mm3 (1.3-6.7); Neutrophils Percent Auto 65.2 % (45.5-73.1); Platelet Count Result 188 k/mm3 (150-375); Red Blood Count 5.48 M/mm3 (4.6-6.20); Red Cell Distribution Width 13.1 % (11.5-14.5)
[2023-09-07 08:18] LABS: Alanine Aminotransferase 238 U/L (6-50); Albumin Level 4.6 g/dL (3.5-5.1); Alkaline Phosphatase 84 U/L (38-126); Anion Gap 13 mmol/L (8-16); Aspartate Amino Transferase 168 U/L (17-59); Bilirubin,Total 0.9 mg/dL (0.2-1.3); Blood Urea Nitrogen 10 mg/dL (9-20); Calcium 9.7 mg/dL (8.4-10.2); Carbon Dioxide 20 mmol/L (22-30); Chloride 102 mmol/L (98-107); Cholesterol 155 mg/dL (0-200); Estimated Glomerular Filt Rate > 60; Glucose 181 mg/dL (65-110); HDL Direct 37 mg/dL; Hemoglobin A1C 7.5 % (<5.7); Potassium 4.1 mmol/L (3.4-5.0); Sodium 135 mmol/L (137-145); Triglycerides 150 mg/dL (<150)
[2023-09-07 08:31] LABS: LDL Cholesterol Direct 86 mg/dL
== END 2023-09-07 06:56 | disposition home or self-care (01) ==
LOC: ANHLAB 06:57
PROVIDERS: PCP Family Medicine; Visit Provider Physician Assistant
DX: E11.65 Type 2 diabetes mellitus with hyperglycemia (principal); E78.5 Hyperlipidemia, unspecified; I10 Essential (primary) hypertension
CPT/HCPCS: 36415; 80053; 80061; 83036; 85025

== ENCOUNTER 2023-09-22 11:26 | Outpatient (CLI) | payer OTHER, SELFPAY ==
[2023-09-22 12:54] LABS: Alanine Aminotransferase 309 U/L (6-50); Alkaline Phosphatase 93 U/L (38-126); Amylase 98 U/L (30-110); Anion Gap 10 mmol/L (8-16); Aspartate Amino Transferase 118 U/L (17-59); Blood Urea Nitrogen 12 mg/dL (9-20); Calcium 10.1 mg/dL (8.4-10.2); Carbon Dioxide 27 mmol/L (22-30); Chloride 100 mmol/L (98-107); Estimated Glomerular Filt Rate > 60; Glucose 132 mg/dL (65-110); Lipase 96 U/L (23-300); Potassium 4.6 mmol/L (3.4-5.0); Sodium 137 mmol/L (137-145)
== END 2023-09-22 11:27 | disposition home or self-care (01) ==
LOC: ANHLAB 11:27
PROVIDERS: PCP Family Medicine; Visit Provider Physician Assistant
DX: R74.8 Abnormal levels of other serum enzymes (principal)
CPT/HCPCS: 36415; 80053; 82150; 83690

== ENCOUNTER 2023-10-12 07:23 | Outpatient (CLI) | payer OTHER, SELFPAY ==
--- NOTE | ~2023-10-12 | US_ITS ---
Abdominal Sonogram: Real-time sonographic imaging of the abdomen was performed. Clinical History: Abnormal serum enzyme levels Findings: The liver appears echogenic, with no evidence of mass lesion or bile duct dilatation. Main portal vein demonstrates normal direction of flow. The spleen is normal in size without evidence of focal lesion. The gallbladder is well distended, and appears normal with no evidence of gallstone or wall thickening. The common bile duct measures 5 mm. The pancreas is obscured by bowel gas shadowin g. Visualized aorta/IVC are unremarkable. The right kidney measures 13.1 cm in length and the left ki dney measures 12.9 cm. There is no hydronephrosis or renal calculus. Impression: Diffuse fatty infiltration of liver. Reviewed, dictated and finalized at [facility]. S BENDER Impression: Diffuse fatty infiltration of liver.
== END 2023-10-12 07:24 | disposition home or self-care (01) ==
PROVIDERS: PCP Family Medicine; Visit Provider Physician Assistant
DX: R74.8 Abnormal levels of other serum enzymes (principal); K76.0 Fatty (change of) liver, not elsewhere classified
CPT/HCPCS: 76700

== ENCOUNTER 2024-06-28 06:40 | Outpatient (CLI) | payer OTHER, SELFPAY ==
[2024-06-28 07:33] LABS: Basophils Percent Auto 0.4 % (0.2-1.2); Eosinophils Absolute Auto 0.2 K/mm3 (0-0.3); Eosinophils Percent Auto 3.4 % (0-4.4); Hemoglobin 16.6 g/dL (14.0-18.0); Immature Granulocyte Absolute 0.04 K/mm3 (0.00-0.031); Immature Granulocyte Percent A 0.6 % (0-0.5); Lymphocytes Absolute Auto 0.93 K/mm3 (0.9-3.2); Lymphocytes Percent Auto 13.6 % (18.3-44.2); Mean Corpuscular HGB Conc 35.3 g/dl (32-36); Mean Corpuscular Hemoglobin 32.5 pg (26-34); Mean Corpuscular Volume 92.2 fl (80-100); Mean Platelet Volume 10.3 fl (7.4-10.4); Monocytes Absolute Auto 0.7 K/mm3 (0.1-0.6); Monocytes Percent Auto 10.8 % (2.6-8.5); Neutrophils Absolute Auto 4.9 K/mm3 (1.3-6.7); Neutrophils Percent Auto 71.2 % (45.5-73.1); Platelet Count Result 172 k/mm3 (150-375); Red Cell Distribution Width 12.7 % (11.5-14.5); White Blood Count 6.9 K/mm3 (4.5-10.0)
[2024-06-28 08:24] LABS: Alanine Aminotransferase 47 U/L (6-50); Albumin Level 4.5 g/dL (3.5-5.1); Alkaline Phosphatase 76 U/L (38-126); Anion Gap 8 mmol/L (4-12); Aspartate Amino Transferase 37 U/L (17-59); Bilirubin,Total 0.9 mg/dL (0.2-1.3); Blood Urea Nitrogen 12 mg/dL (9-20); Calcium 9.4 mg/dL (8.4-10.2); Carbon Dioxide 24 mmol/L (22-30); Chloride 95 mmol/L (98-107); Cholesterol 138 mg/dL (0-200); Estimated Glomerular Filt Rate > 60; Glucose 171 mg/dL (65-110); HDL Direct 38 mg/dL; Potassium 3.9 mmol/L (3.4-5.0); Sodium 127 mmol/L (137-145); Triglycerides 132 mg/dL (<150)
[2024-06-28 08:34] LABS: LDL Cholesterol Direct 75 mg/dL
[2024-06-28 08:37] LABS: Hemoglobin A1C 8.9 % (<5.7)
== END 2024-06-28 06:41 | disposition home or self-care (01) ==
LOC: ANHLAB 06:41
PROVIDERS: PCP Family Medicine; Visit Provider Physician Assistant
DX: R74.8 Abnormal levels of other serum enzymes (principal); E11.65 Type 2 diabetes mellitus with hyperglycemia; E78.5 Hyperlipidemia, unspecified; R74.01 Elevation of levels of liver transaminase levels
CPT/HCPCS: 36415; 80053; 80061; 83036; 85025

== ENCOUNTER 2024-07-05 06:47 | Outpatient (CLI) | payer OTHER, SELFPAY ==
[2024-07-05 08:08] LABS: Anion Gap 12 mmol/L (4-12); Blood Urea Nitrogen 11 mg/dL (9-20); Calcium 9.7 mg/dL (8.4-10.2); Carbon Dioxide 23 mmol/L (22-30); Chloride 100 mmol/L (98-107); Estimated Glomerular Filt Rate > 60; Glucose 151 mg/dL (65-110); Potassium 4.1 mmol/L (3.4-5.0); Sodium 135 mmol/L (137-145)
== END 2024-07-05 06:48 | disposition home or self-care (01) ==
PROVIDERS: PCP Family Medicine; Visit Provider Physician Assistant
DX: E87.1 Hypo-osmolality and hyponatremia (principal)
CPT/HCPCS: 36415; 80048

== ENCOUNTER 2024-11-08 09:24 | Outpatient (CLI) | payer OTHER, SELFPAY ==
--- OUTSIDE RECORDS SUMMARY | 2024-11-08 09:40 | XMS_ITS | Clinical Summary ---
Author Organization [facility] [employer] Address [address] [place] [address] Care Team Providers Care Oil Lease Buyer Name Role Phone Sonia Monroe MD Primary Care Provider + Source Comments [facility] [employer],non-owned Affiliates and Associated Physician Practices is amultiple site organization consisting of ambulatory clinics and hospital sitesin [place], [place], [place] and [place]. This disclosure is being madepursuant to the Care Everywhere program and may not contain all information available regarding this patient. Last updated 18.[facility] [employer] Allergies No known active allergies Medications * Be aware that medications may not be up to date on this document. Alwaysverify current medications with the patient. Medication Sig Dispensed Refills Start Date End Date Status Insulin Glargine (LANTUS SC) Active METFORMIN HCL PO Active Canagliflozin (INVOKANA PO) Active ATORVASTATIN CALCIUM PO Active LISINOPRIL PO Active benzonatate (TESSALON) 100 MG capsule Take 1 Cap by mouth 3 times daily as needed for Cough 30 Cap 02/03/2017 Active Social History Tobacco Use Types Packs/Day Years Used Date Smoking Tobacco: Never Sex and Gender Information Value Date Recorded Sex Assigned at Not on file Gender Identity Not on file Sexual Orientation Not on file Last Filed Vital Signs Vital Sign Reading Time Taken Comments Blood Pressure 114/66 02/03/2017 2:19 PM CDT Pulse 88 02/03/2017 2:19 PM CDT Temperature 36.9 ??C (98.5 ??F) 02/03/2017 2:19 PM CD T Respiratory Rate 18 02/03/2017 2:19 PM CDT Oxygen Saturation 97% 02/03/2017 2:19 PM CDT Inhaled Oxygen Concentration - - Weight 99.3 kg (219 lb) 02/03/2017 2:19 PM CDT Height 185.4 cm (6' 1 ) 02/03/2017 2:19 PM CDT Body Mass Index 28.89 02/03/2017 2:19 PM CDT Plan of Treatment Health Maintenance Due Date Last Done Comments COLOGUARD (AGES 45-75) - COL ON CA SCREENING 1969 COLON MONITORING 1969 COLONOSCOPY - COLON CA SCREENING 1969 CT COLONOGRAPHY - COLON CA SCREENING 1969 Colorectal Cancer Screening 1969 FIT - COLON CA SCREENING 1969 FLEX SIG - COLON CA SCREENING 1969 HIV SCREENING 1984 HEPATITIS C SCREENING 10/14/1987 DTAP/TDAP/TD VACCINES (1 - Tdap) 1988 HEPATITIS B VACCINE (1 of 3 - 19+ 3-dose series) 1988 PNEUMOCOCCAL VACCINE 50+ (1 of 1 - PCV) 2019 ZOSTER VACCINE (1 of 2) 2019 COVID-19 VACCINE (1 - 2023-2 5 season) 2024 INFLUENZA VACCINE (#1) 2024 DEPRESSION SCREENING 10/09/2024 HIB VACCINE Aged Out No longer eligi ble based on patient's age to complete this topic HPV VACCINE Aged Out No longer eligi ble based on patient's age to complete this topic MENINGOCOCCAL (Group B) VACCINE Aged Out No longer eligible based on patient's age to complete this topic MENINGOCOCCAL VACCINE Aged Out No gini charbel eligible based on patient's age to complete this topic PNEUMOCOCCAL VACCINE Aged Out No long er eligible based on patient's age to complete this topic Care Teams Oil Lease Buyer Relationship Specialty Start Date End Date Sonia Monroe MD [address] [place] [address] PCP - General Family Medicine 02/03/17
--- OUTSIDE RECORDS SUMMARY | 2024-11-08 09:40 | XMS_ITS | Patient Health Summary ---
Author Organization [facility] Address [address] [address] Care Team Providers Care Ui Software Developer Name Role Phone Sonia Monroe MD Primary Care Provider + Note from [facility],non-owned Affiliates and Associated Physician Practices is amultiple site organization consisting of ambulatory clinics and hospital sitesin [place], [place], [place] and [place]. This disclosure is being madepursuant to the Care Everywhere program and may not contain all information available regarding this patient. Last updated 18.[facility] Allergies No known active allergies Medications * Be aware that medications may not be up to date on this document. Alwaysverify current medications with the patient. * Insulin Glargine (LANTUS SC) * METFORMIN HCL PO * Canagliflozin (INVOKANA PO) * ATORVASTATIN CALCIUM PO * LISINOPRIL PO * benzonatate (TESSALON) 100 MG capsule(Started 02/03/2017) Take 1 Cap by mouth 3 times daily as needed for Cough Social History Tobacco Use Types Packs/Day Years [...] Mass Index 28.89 02/03/2017 2:19 PM CDT Procedures * STREP A SCREEN - POINT OF CARE (AMB) STL(Performed 02/03/2017) Performed for Strep pharyngitis Results * (ABNORMAL) STREP A SCREEN - POINT OF CARE (AMB) STL (02/03/2017) Strep A Rapid POCT Positive(A) Negative Strep A Internal Control Present Lot # [id number] Expiration Date 10/20/2018 Throat ENTIRE THROAT (SURFACE REGION OF NECK) / Unknown 02/03/2017 Francine Verdugo [employer]ORTS ANALYST[employer] [facility] - POINT OF C ARE ORDERABLES Care Teams Ui Software Developer Relationship Specialty Start Date End Date Sonia Monroe MD [address] [place] [address] PCP - General Family Medicine 02/03/17
--- OUTSIDE RECORDS SUMMARY | 2024-11-08 09:40 | XMS_ITS | Referral Summary ---
Author Organization [facility] [employer] Address [address] [place] [address] Care Team Providers Care Pilot Captain Name Role Phone Sonia Monroe MD Primary Care Provider + Source Comments [facility],non-owned Affiliates and Associated Physician Practices is amultiple site organization consisting of ambulatory clinics and hospital sitesin [place], [place], [place] and [place]. This disclosure is being madepursuant to the Care Everywhere program and may not contain all information available regarding this patient. Last updated 18.[facility] [employer] Allergies No known active allergies Medications * [...] 02/03/2017 2:19 PM CDT Plan of Treatment Not on file Care Teams Pilot Captain Relationship Specialty Start Date End Date Sonia Monroe MD [address] [place] [address] PCP - General Family Medicine 02/03/17
[2024-11-08 11:45] LABS: Creatinine Urine 50.1 mg/dL
[2024-11-08 11:49] LABS: MALB Creatinine Ratio 14.6 mg/g (0-30); Microalbumin Urine Random 7.3 mg/L (0-16.7)
[2024-11-08 12:27] LABS: Hemoglobin A1C 8.2 % (<5.7)
[2024-11-08 13:13] LABS: Alanine Aminotransferase 57 U/L (6-50); Albumin Level 4.6 g/dL (3.5-5.1); Alkaline Phosphatase 87 U/L (38-126); Anion Gap 16 mmol/L (4-12); Aspartate Amino Transferase 46 U/L (17-59); Bilirubin,Total 0.9 mg/dL (0.2-1.3); Blood Urea Nitrogen 14 mg/dL (9-20); Carbon Dioxide 23 mmol/L (22-30); Chloride 100 mmol/L (98-107); Estimated Glomerular Filt Rate > 60; Glucose 134 mg/dL (65-110); Potassium 4.2 mmol/L (3.4-5.0); Sodium 139 mmol/L (137-145)
== END 2024-11-08 09:25 | disposition home or self-care (01) ==
LOC: ANHLAB 09:24
PROVIDERS: PCP Family Medicine; Visit Provider Student in an Organized Health Care Education/Training Program
DX: E11.65 Type 2 diabetes mellitus with hyperglycemia (principal); E87.1 Hypo-osmolality and hyponatremia
CPT/HCPCS: 36415; 80053; 82043; 83036

== ENCOUNTER 2025-01-03 06:48 | Outpatient (CLI) | payer OTHER, SELFPAY ==
--- OUTSIDE RECORDS SUMMARY | 2025-01-03 06:51 | XMS_ITS | Clinical Summary ---
Author Organization [facility] [employer] Address [address] [place] [address] Care Team Providers Care Reporting Coordinator Name Role Phone Sonia Monroe MD Primary Care Provider + Source Comments [facility] [employer],non-owned Affiliates and Associated Physician Practices is amultiple site organization consisting of ambulatory clinics and hospital sitesin [place], [place], [place] and [place]. This disclosure is being madepursuant to the Care Everywhere program and may not contain all information available regarding this patient. Last updated 18.[facility] [employer] Allergies No known active allergies Medications * [...] 88 02/03/2017 2:19 PM CDT Temperature 36.9 C (98.5 F) 02/03/2017 2:19 PM CDT Respiratory Rate 18 02/03/2017 2:19 PM CDT [...] VACCINE (1 of 2) 2019 COVID-19 VACCINE ( - 2023-2 5 season) 2024 INFLUENZA VACCINE (#1) 2024 DEPRESSION SCREENING 10/09/2024 HIB VACCINE Aged Out No longer eligi ble based on patient's age to complete this topic HPV VACCINE Aged Out No longer eligi ble based on patient's age to complete this topic MENINGOCOCCAL (Group B) VACC INE SHARED DECISION-MAKING Aged Out No longer eligibl e based on patient's age to complete this topic MENINGOCOCCAL GROUPS A/C/Y/W VACCINE Aged Out No longer eligible b ased on patient's age to complete this topic PNEUMOCOCCAL VACCINE Aged Out No long er eligible based on patient's age to complete this topic Care Teams Reporting Coordinator Relationship Specialty Start Date End Date Sonia Monroe MD [address] [place] [address] PCP - General Family Medicine 02/03/17
[2025-01-03 07:15] LABS: Alanine Aminotransferase 46 U/L (6-50); Albumin Level 4.6 g/dL (3.5-5.1); Alkaline Phosphatase 80 U/L (38-126); Anion Gap 14 mmol/L (4-12); Aspartate Amino Transferase 33 U/L (17-59); Blood Urea Nitrogen 13 mg/dL (9-20); Calcium 9.6 mg/dL (8.4-10.2); Carbon Dioxide 20 mmol/L (22-30); Chloride 100 mmol/L (98-107); Estimated Glomerular Filt Rate > 60; Glucose 198 mg/dL (65-110); Potassium 4.5 mmol/L (3.4-5.0); Sodium 134 mmol/L (137-145)
[2025-01-03 08:25] LABS: Hemoglobin A1C 7.6 % (<5.7)
== END 2025-01-03 06:49 | disposition home or self-care (01) ==
LOC: ANHLAB 06:49
PROVIDERS: PCP Family Medicine; Visit Provider Student in an Organized Health Care Education/Training Program
DX: E11.65 Type 2 diabetes mellitus with hyperglycemia (principal); Z79.4 Long term (current) use of insulin; I10 Essential (primary) hypertension
CPT/HCPCS: 36415; 80053; 83036

== ENCOUNTER 2025-01-27 12:52 | Outpatient (CLI) | payer OTHER, SELFPAY ==
--- OUTSIDE RECORDS SUMMARY | 2025-01-27 14:19 | XMS_ITS | Clinical Summary ---
Author Organization [facility] [employer] Address [address] [place] [address] Care Team Providers Care Truck Driver Rubbish Collector Name Role Phone Sonia Monroe MD Primary Care Provider + Source Comments [facility] [employer],non-owned Affiliates and Associated Physician Practices is amultiple site organization consisting of ambulatory clinics and hospital sitesin [place], [place], [place] and [place]. This disclosure is being madepursuant to the Care Everywhere program and may not contain all information available regarding this patient. Last updated 18.[facility] Allergies No known active allergies Medications * Be aware that medications may not be up to date on this document. Alwaysverify current medications with the patient. Insulin Glargine (LANTUS SC) Active METFORMIN HCL PO Act jossue Canagliflozin (INVOKANA PO) Active ATORVASTATIN CALCIUM PO Active LISINOPRIL PO Active benzonatate (TESSALON) 100 MG capsule Take 1 Cap by mouth 3 times daily as needed for Cough 30 Cap 02/03/2017 Active Social History Tobacco Use Types Packs/Day Years Used Date Smoking Tobacco: Never Sex and Gender Information Value Date Recorded Sex Assigned at Not on file Legal Sex Male 8:26 AM CDT Gender Identity Not on file Sexual Orientation [...] VACCINE (1 - 2023-2 5 season) 2024 DEPRESSION SCREENING 10/09/2024 INFLUENZA VACCINE (Season Ended) 2025 HIB VACCINE Aged Out No longer eligi [...] on patient's age to complete this topic Insurance [employer] Care Teams Truck Driver Rubbish Collector Relationship Specialty Start Date End Date Sonia Monroe MD [address] [facility] [address] [place] [address] PCP - General Family Medicine 02/03/17
[2025-01-27 14:55] LABS: Influenza A QL RT-PCR Negative (Negative); Influenza B QL RT-PCR Negative (Negative); SARS-CoV-2 RNA PCR Negative (Negative)
== END 2025-01-27 12:53 | disposition home or self-care (01) ==
LOC: ANHLAB 12:53
PROVIDERS: PCP Family Medicine; Visit Provider Physician Assistant Medical
DX: R50.9 Fever, unspecified (principal); R05.9 Cough, unspecified
CPT/HCPCS: 87636

== ENCOUNTER 2025-04-25 07:18 | Outpatient (CLI) | payer OTHER, SELFPAY ==
--- OUTSIDE RECORDS SUMMARY | 2025-04-25 07:21 | XMS_ITS | Clinical Summary ---
Author Organization [facility] [email or web address] Address [address] [place] [address] Care Team Providers Care Document Preparation Specialist Name Role Phone Sonia Monroe MD Primary Care Provider + Source Comments [email or web address],non-owned Affiliates and Associated Physician Practices is amultiple site organization consisting of ambulatory clinics and hospital sitesin [place], [place], [place] and [place]. This disclosure is being madepursuant to the Care Everywhere program and may not contain all information available regarding this patient. Last updated 18.[email or web address] Allergies No known active allergies Medications * [...] 2:19 PM CDT Height 185.4 cm (6' 1) 02/03/2017 2:19 PM CDT Body Mass Index [...] season) 2024 DEPRESSION SCREENING 10/09/2024 INFLUENZA VACCINE (#1) 2025 HIB VACCINE Aged Out No longer [...] complete this topic Insurance [employer] Care Teams Document Preparation Specialist Relationship Specialty Start Date End Date Sonia Monroe MD [address] [facility] [address] [place] [address] PCP - General Family Medicine 02/03/17
[2025-04-25 08:59] LABS: Alanine Aminotransferase 28 U/L (6-50); Albumin Level 4.6 g/dL (3.5-5.1); Alkaline Phosphatase 73 U/L (38-126); Anion Gap 12 mmol/L (4-12); Aspartate Amino Transferase 26 U/L (17-59); Bilirubin,Total 0.6 mg/dL (0.2-1.3); Blood Urea Nitrogen 10 mg/dL (9-20); Calcium 9.7 mg/dL (8.4-10.2); Carbon Dioxide 22 mmol/L (22-30); Chloride 103 mmol/L (98-107); Estimated Glomerular Filt Rate > 60; Glucose 142 mg/dL (65-110); Potassium 4.3 mmol/L (3.4-5.0); Sodium 137 mmol/L (137-145); Total Protein 7.5 g/dL (6.3-8.2)
[2025-04-25 11:19] LABS: Hemoglobin A1C 7.1 % (<5.7)
== END 2025-04-25 07:19 | disposition home or self-care (01) ==
LOC: ANHLAB 07:19
PROVIDERS: PCP Family Medicine; Visit Provider Student in an Organized Health Care Education/Training Program
DX: E11.65 Type 2 diabetes mellitus with hyperglycemia (principal); I10 Essential (primary) hypertension; Z79.4 Long term (current) use of insulin
CPT/HCPCS: 36415; 80053; 83036

== ENCOUNTER 2025-09-19 06:47 | Outpatient (CLI) | payer OTHER, SELFPAY ==
[2025-09-19 07:27] LABS: Hematocrit 49.0 % (42.0-52.0); Hemoglobin 16.9 g/dL (14.0-18.0); Mean Corpuscular HGB Conc 34.5 g/dl (32-36); Mean Corpuscular Hemoglobin 31.5 pg (26-34); Mean Corpuscular Volume 91.4 fl (80-100); Platelet Count Result 199 k/mm3 (150-375); Red Blood Count 5.36 M/mm3 (4.6-6.20); White Blood Count 5.8 K/mm3 (4.5-10.0)
[2025-09-19 07:53] LABS: Alanine Aminotransferase 27 U/L (6-50); Albumin Level 4.7 g/dL (3.5-5.1); Alkaline Phosphatase 70 U/L (38-126); Anion Gap 6 mmol/L (4-12); Aspartate Amino Transferase 24 U/L (17-59); Bilirubin,Total 0.9 mg/dL (0.2-1.3); Blood Urea Nitrogen 14 mg/dL (9-20); Calcium 9.6 mg/dL (8.4-10.2); Carbon Dioxide 25 mmol/L (22-30); Chloride 102 mmol/L (98-107); Cholesterol 112 mg/dL (0-200); Estimated Glomerular Filt Rate > 60; Glucose 168 mg/dL (65-110); HDL Direct 39 mg/dL; Potassium 4.2 mmol/L (3.4-5.0); Sodium 133 mmol/L (137-145); Total Protein 7.5 g/dL (6.3-8.2); Triglycerides 123 mg/dL (<150)
[2025-09-19 08:28] LABS: Prostate Specific Antigen 0.4 ng/mL (< OR = 4.0)
[2025-09-19 09:11] LABS: Thyroid Stimulating Hormone 2.230 uIU/mL (0.465-4.680)
[2025-09-19 13:59] LABS: Hemoglobin A1C 7.0 % (<5.7)
== END 2025-09-19 06:48 | disposition home or self-care (01) ==
LOC: ANHLAB 06:49
PROVIDERS: PCP Family Medicine; Visit Provider Physician Assistant Medical
DX: Z00.00 Encounter for general adult medical examination without abnormal findings (principal); I10 Essential (primary) hypertension; E78.5 Hyperlipidemia, unspecified; E11.69 Type 2 diabetes mellitus with other specified complication; E11.65 Type 2 diabetes mellitus with hyperglycemia; Z79.4 Long term (current) use of insulin; Z12.5 Encounter for screening for malignant neoplasm of prostate
CPT/HCPCS: 36415; 80053; 80061; 83036; 84153; 84443; 85027; G0103